=== PATIENT | female | born 1945 | race Two or more races ===

== ENCOUNTER 2022-11-15 11:09 | Emergency (ER) | payer BC, OTHER ==
[~2022-11-15] VITALS: Ht 152.4 cm; Wt 82.1 kg
[2022-11-15 12:44] LABS: BASOPHILS % (AUTO) 0.6 % (0.0-2.0); EOSINOPHILS % (AUTO) 2.6 % (0.0-6.0); HEMATOCRIT 39 % (33-45); HEMOGLOBIN 12.5 g/dL (11.5-14.8); LYMPHOCYTES # (AUTO) 1.9 K/uL (0.8-4.8); LYMPHOCYTES % (AUTO) 31.3 % (20.0-44.0); MEAN CORPUSCULAR HGB CONC 32 g/dl (31.0-36.0); MEAN CORPUSCULAR VOLUME 95 fL (82-100); MONOCYTES # (AUTO) 0.5 K/uL (0.1-1.30); MONOCYTES % (AUTO) 8.6 % (2.0-12.0); NEUTROPHILS # (AUTO) 3.5 K/uL (1.8-8.9); NEUTROPHILS % (AUTO) 56.9 % (43.0-81.0); PLATELET COUNT (AUTO) 215 K/uL (150-450); WHITE BLOOD COUNT (AUTO) 6.2 K/uL (4.3-11.0)
[2022-11-15 12:57] LABS: ALANINE AMINOTRANSFERASE 17 U/L (12-78); ALBUMIN 3.5 g/dL (3.4-5.0); ALKALINE PHOSPHATASE 168 U/L (46-116); ASPARTATE AMINOTRANSFERASE 13 U/L (15-37); BILIRUBIN,DIRECT 0.1 mg/dL (0.0-0.2); BILIRUBIN,TOTAL 0.3 mg/dL (0.2-1.0); CARBON DIOXIDE 26 mmol/L (21-32); CHLORIDE 106 mmol/L (98-107); CREATININE 1.4 mg/dL (0.6-1.3); GLUCOSE 96 mg/dL (74-106); POTASSIUM 4.2 mmol/L (3.5-5.1); SODIUM SERUM 141 mmol/L (136-145); TOTAL PROTEIN, SERUM 6.5 g/dL (6.4-8.2); UREA NITROGEN, BLOOD 28 mg/dL (7-18)
--- NOTE | 2022-11-15 13:14 | NUR ---
HERNAN, FROM SNF, C/O PAIN GENERALIZED, UPSET STOMACH AND HEAD ACHE, OVER ALL GENERALIZED WEAKNESS, DOES NOT AMBULATE,
--- NOTE | 2022-11-15 13:27 | NUR ---
URINE SPECIMEN COLLECTED SENT TO LAB- PT C/O PAIN DURING VOID STING ITCH RYAN PT STATED
[2022-11-15 14:46] LABS: BILIRUBIN,URINE NEGATIVE (NEGATIVE); COLOR,URINE YELLOW (YELLOW); LEUKOCYTE ESTERASE ,URINE TRACE (NEGATIVE); NITRITE, URINE NEGATIVE (NEGATIVE); PROTEIN,URINE 1+ mg/dl (NEGATIVE); UGLUCOSE NEGATIVE (NEGATIVE); UROBILINOGEN,URINE 0.2 EU/dL (0.2)
[2022-11-15] MEDS ORDERED: NITR100C6 PO (15:13)
--- NOTE | 2022-11-15 15:27 | NUR ---
CALLED [facility] AND SET UP BLS TRANSPORT ETA 163
--- NOTE | 2022-11-15 15:35 | NUR ---
PT IN STABLE CONDITION, ORDERS TO D/C, SNF NOTIFIED FOR CHILD SUPPORT AGENT / RIDE, ALL EDUCATION AND INFORMATION EXPLAINED TO PT AND PT HAS GOOD UNDERSTANDING DG = UTI
--- NOTE | 2022-11-15 16:21 | NUR ---
IV STOP TIME 1615 SKIN INTACT
--- NOTE | 2022-11-15 16:22 | NUR ---
PT STABLE, ORDER TO D/C PT BACK TO SNF AT THIS TIME , SNF NOTIFIED FOR TRANSFER BACK
[2022-11-15 16:23] VITALS: BP 127/66
[2022-11-15 17:32] LABS: BACTERIA,URINE RARE /HPF (None Seen); RBC,URINE 0-2 /HPF (0-2)
== END 2022-11-15 16:23 ==
LOC: ER 11:32
DX: N39.0 Urinary tract infection, site not specified (principal); M48.02 Spinal stenosis, cervical region; M79.604 Pain in right leg; I10 Essential (primary) hypertension; E11.9 Type 2 diabetes mellitus without complications; J45.909 Unspecified asthma, uncomplicated; E78.5 Hyperlipidemia, unspecified; K21.9 Gastro-esophageal reflux disease without esophagitis; Z91.040 Latex allergy status; Z88.0 Allergy status to penicillin; Z88.1 Allergy status to other antibiotic agents
CPT/HCPCS: 36415; 72125-TC; 80048-TC; 80076-TC; 81001; 84443-TC; 85025-TC

== ENCOUNTER 2023-01-27 13:54 | Emergency (ER) | payer BC, OTHER ==
[~2023-01-27] VITALS: Ht 152.4 cm; Wt 83.9 kg
[~2023-01-27 13:54] MED LIST: NITR100C6 PO
--- NOTE | 2023-01-27 14:10 | NUR ---
LESLEE JACKSON FROM [facility], C/O LEFT SIDED BODY PAIN SINCE THIS MORNING. RATES PAIN 9/10. WILL CONTINUE TO MONITOR THE PATIENT.
--- NOTE | 2023-01-27 15:10 | NUR ---
X-RAY TECH AT THE BEDSIDE
[2023-01-27] MEDS ORDERED: ACETAMINOPHEN ES 500 MG TABLET ONE (15:12)
[2023-01-27] MEDS ORDERED: ACETAMINOPHEN ES 500 MG TABLET PO ONE (15:30)
--- NOTE | 2023-01-27 15:48 | NUR ---
[phone] OCTAVIO BAIG (SON)
--- NOTE | 2023-01-27 16:18 | NUR ---
URINE COLLECTED AND SENT TO THE LAB
[2023-01-27 17:02] LABS: BILIRUBIN,URINE NEGATIVE (NEGATIVE); COLOR,URINE YELLOW (YELLOW); LEUKOCYTE ESTERASE ,URINE 1+ (NEGATIVE); NITRITE, URINE NEGATIVE (NEGATIVE); PROTEIN,URINE 1+ mg/dl (NEGATIVE); UGLUCOSE NEGATIVE (NEGATIVE); UROBILINOGEN,URINE 0.2 EU/dL (0.2)
[2023-01-27] MEDS ORDERED: CIPROFLOXACIN HCL 250 MG TABLET PO ONE (17:30)
[2023-01-27] MEDS ORDERED: CIPROFLOXACIN HCL 500 MG TABLET ONE (17:35)
[2023-01-27 17:36] LABS: BACTERIA,URINE 3+ /HPF (None Seen); RBC,URINE 0-2 /HPF (0-2)
[2023-01-27 17:37] VITALS: BP 140/77
[2023-01-27] MEDS ORDERED: CIPR-262 PO ×2 (17:55→17:57)
--- NOTE | 2023-01-27 18:02 | NUR ---
CALLED [facility] FOR TRANSPORT ETA 30-45 MINS.
--- NOTE | 2023-01-27 18:49 | NUR ---
Patient discharged in stable condition. Written and verbal after care instructions given. Patient verbalizes understanding of instruction.
--- NOTE | 2023-01-27 18:49 | NUR ---
REPORT GIVEN TO NURSE ÁLVAREZ FOR TEDDY
== END 2023-01-27 18:50 ==
LOC: ER 14:36
DX: N39.0 Urinary tract infection, site not specified (principal); M79.10 Myalgia, unspecified site; R05.9 Cough, unspecified; I10 Essential (primary) hypertension; E78.5 Hyperlipidemia, unspecified; E11.9 Type 2 diabetes mellitus without complications; J45.909 Unspecified asthma, uncomplicated; K21.9 Gastro-esophageal reflux disease without esophagitis; Z88.0 Allergy status to penicillin; Z88.8 Allergy status to other drugs, medicaments and biological substances
CPT/HCPCS: 71045-TC; 73502; 81001; 87086-TC

== ENCOUNTER 2023-03-20 17:39 | Inpatient (IN) | payer BC, OTHER ==
[~2023-03-20] VITALS: Ht 152.4 cm; Wt 81.4 kg
[~2023-03-20 17:39] MED LIST changes: +CIPR-262 PO; +MOXI3DRO EACHEYE
--- NOTE | 2023-03-20 18:08 | NUR ---
LESLEE JACKSON FROM [facility] C/O GENERALIZE DBODY PAIN, NAUSEA AND VOMITING, HEADACHE, DIARRHEA, AND FEELING, AND GENERALIZED WEAKNESS. PLACED IN BED, AAOX4, BREATHING EVEN AND UNLABORED SATURATING AT 96%RA.
--- NOTE | 2023-03-20 18:50 | NUR ---
BLOOD DRAWN AND STOOL SAMPLE FOR C DIFF SENT TO LAB
[2023-03-20] MEDS ORDERED: IV NS 0.9% 1,000 ML IV ONE (19:00)
[2023-03-20 19:18] LABS: BASOPHILS % (AUTO) 0.6 % (0.0-2.0); EOSINOPHILS % (AUTO) 2.9 % (0.0-6.0); HEMATOCRIT 39 % (33-45); HEMOGLOBIN 12.9 g/dL (11.5-14.8); LYMPHOCYTES # (AUTO) 1.5 K/uL (0.8-4.8); LYMPHOCYTES % (AUTO) 21.6 % (20.0-44.0); MEAN CORPUSCULAR HGB CONC 33 g/dl (31.0-36.0); MEAN CORPUSCULAR VOLUME 96 fL (82-100); MONOCYTES # (AUTO) 0.4 K/uL (0.1-1.30); MONOCYTES % (AUTO) 6.4 % (2.0-12.0); NEUTROPHILS # (AUTO) 4.7 K/uL (1.8-8.9); NEUTROPHILS % (AUTO) 68.5 % (43.0-81.0); PLATELET COUNT (AUTO) 250 K/uL (150-450); RED BLOOD CELL COUNT(AUTO) 4.07 MIL/uL (4.0-5.2); WHITE BLOOD COUNT (AUTO) 6.9 K/uL (4.3-11.0)
[2023-03-20 19:32] LABS: CALCIUM, SERUM 10.9 mg/dL (8.5-10.1); CARBON DIOXIDE 24 mmol/L (21-32); CHLORIDE 105 mmol/L (98-107); CREATININE 0.8 mg/dL (0.6-1.3); GLUCOSE 96 mg/dL (74-106); POTASSIUM 3.9 mmol/L (3.5-5.1); SODIUM SERUM 140 mmol/L (136-145); UREA NITROGEN, BLOOD 11 mg/dL (7-18)
[2023-03-20 19:40] LABS: ALANINE AMINOTRANSFERASE 12 U/L (12-78); ALBUMIN 3.7 g/dL (3.4-5.0); ALKALINE PHOSPHATASE 115 U/L (46-116); ASPARTATE AMINOTRANSFERASE 13 U/L (15-37); BILIRUBIN,DIRECT 0.2 mg/dL (0.0-0.2); BILIRUBIN,TOTAL 0.6 mg/dL (0.2-1.0); TOTAL PROTEIN, SERUM 7.2 g/dL (6.4-8.2)
--- NOTE | 2023-03-20 19:45 | NUR ---
MAGNESIUM 0.9; DR FLORENTINO BURNS AWARE
[2023-03-20] MEDS: Magnesium 1GM/D5W 100ML PREMIX 100 ML IV SCH ×2 (20:00→21:41)
--- NOTE | 2023-03-20 20:20 | NUR ---
URINE COLLECTED AND SENT TO LAB
--- NOTE | 2023-03-20 20:55 | NUR ---
PT TAKEN TO CT VIA [facility]
[2023-03-20 21:10] LABS: BILIRUBIN,URINE NEGATIVE (NEGATIVE); COLOR,URINE YELLOW (YELLOW); LEUKOCYTE ESTERASE ,URINE NEGATIVE (NEGATIVE); NITRITE, URINE NEGATIVE (NEGATIVE); PROTEIN,URINE 1+ mg/dl (NEGATIVE); UGLUCOSE NEGATIVE (NEGATIVE); UROBILINOGEN,URINE 0.2 EU/dL (0.2)
--- NOTE | 2023-03-20 21:11 | NUR ---
PT RETURNED TO ER BED [address]
[2023-03-20 21:15] LABS: RBC,URINE 0-2 /HPF (0-2); WBC,URINE 0-2 /HPF (0-3)
[2023-03-20 21:16] LABS: BACTERIA,URINE RARE /HPF (None Seen); MUCUS,URINE Many /LPF (None Seen)
--- NOTE | 2023-03-20 21:26 | NUR ---
EVALUATED BY SUKHWINDER SILVER
[2023-03-20] MEDS ORDERED: MAGNESIUM HYDROXIDE 30 ML UDC PO PRN (22:00)
[2023-03-20] MEDS ORDERED: ONDANSETRON HCL/PF 4 MG/2 ML VIAL IVP PRN (22:00)
[2023-03-20] MEDS ORDERED: ACETAMINOPHEN 325 MG TABLET PO PRN (22:00)
[2023-03-20] MEDS ORDERED: DEXTROSE 50%-WATER 50 ML DISP.SYRIN IV PRN ×2 (22:00→22:30)
[2023-03-20] MEDS ORDERED: LEVOFLOXACIN 500 MG /D5W 100ML 500 MG/100 ML PIGGYBACK IV SCH (22:00)
[2023-03-20] MEDS ORDERED: MAG HYDROX/AL HYDROX/SIMETH 30 ML UDC PO PRN (22:00)
[2023-03-20] MEDS ORDERED: Z GUARD REMEDY 4 OZ OINT TP PRN (22:00)
--- NOTE | 2023-03-20 22:00 | NUR ---
RN NOTES BLOOS SUGAR CHECKED . RESULT NOTED 91. NO INSULIN COVERAGE.
[2023-03-20] MEDS ORDERED: CIPROFLOXACIN IV RTU 400 MG in PREMIX 1 EA IV STA (22:12)
[2023-03-20] MEDS ORDERED: INSULIN REGULAR, HUMAN 100 UNIT/ML 3 ML VIAL SQ PRN (22:30)
--- NOTE | 2023-03-20 22:31 | NUR ---
REPORT GIVEN TO DANIELE RN ROOM 328-2 FOR TEDDY
[2023-03-20] MEDS ORDERED: METRONIDAZOLE 500MG/ NS 100ML 100 ML IV ONE (22:37)
--- NOTE | 2023-03-20 22:45 | NUR ---
MS STEAM METER READER NOTES RECEIVED PATIENT FROM ER AT 2245 . PATIENT IS A/O TIMES 3. NO PAIN NOTED. NO SOB NOTED. NO DISTRESS NOTED. ON ROOM AIR AND TOLERATING WELL. ABLE TO MAKE NEEDS KNOWN IN MOHAWK LANGUAGE. ALL NEEDA ATTENDED. SKIN CHECK DONE. PHOTO TAKEN AND KEPT IN CHART. LEFT UNDER BREAST OPEN SKIN, RIGHT UNDER BREAST REDNESS. UNDER ABDOMINAL OPEN SKIN, RIGHT HIP SCRATCH. LOWER BACK REDNESS AND SACRAL OPEN SKIN. ALL THE BELONGINGS ACCOUNTED AND SIGNED FOR. IV ACCESS ON THE LAC # 20 INTACT AND RUNNING NS AT 50 ML/HR. VITAL SIGNS IN NORMAL RANGES. INSTRUCT THE PATIENT HOW TO USE THE CALL LIGHT VERBALIZED UNDERSTANDING. ALL SAFETY MEASURES IN PLACE. BED LOCKED IN THE LOWEST POSITION. CALL LIGHT AND TABLE IN EASY REACH. SIDE RAILS UP TIMES 2. BED ALARM ON. WILL CONTINUE TO MONITOR CLOSELY.
[2023-03-21] MEDS: BLOOD SUGAR DIAGNOSTIC 1 EACH STRIP IN SCH ×5 (00:27→21:49)
[2023-03-21] MEDS ORDERED: METRONIDAZOLE 500MG/ NS 100ML 100 ML IV ONE (01:00)
[2023-03-21] MEDS: IV NS 0.9% 1,000 ML IV PRN (01:17)
[2023-03-21] MEDS ORDERED: LEVOFLOXACIN 500 MG /D5W 100ML 100 ML IV ONE (02:00)
[2023-03-21] MEDS ORDERED: METRONIDAZOLE 500MG/ NS 100ML 500 MG in PREMIX 1 EA IV SCH (05:00)
--- NOTE | 2023-03-21 05:08 | NUR ---
RN NOTES PRN IV ZOFRAN GIVEN FOR 1 EPISODE OF VOMITING AT 0459. WILL ASSESS IN 30 MIN.
[2023-03-21] MEDS: METRONIDAZOLE 500MG/ NS 100ML 500 MG in PREMIX 1 EA IV SCH ×3 (06:35→21:07)
--- NOTE | 2023-03-21 06:57 | NUR ---
MS RN CLOSING NOTES: PATIENT AWAKE ON BED, ON MODERATE HIGH BACKREST, A/O X4. NO PAIN OR DISCOMFORT NOTED AT THIS TIME. NO SOB OR DISTRESS NOTED. ON ROOM AIR AND TOLERATING WELL. ABLE TO MAKE NEEDS KNOWN. ALL NEEDS ATTENDED. IV ACCESS ON THE LAC # 20 INTACT AND RUNNING NS AT 50 ML/HR, INFUSING WELL. SCHEDULED MEDICATIONS ADMINISTERED. SAFETY MEASURES IN PLACE. BED LOCKED IN THE LOWEST POSITION. CALL LIGHT AND TABLE IN EASY REACH. SIDE RAILS UP TIMES 2. BED ALARM ON. WILL ENDORSE TO AM NURSE.
[2023-03-21 07:23] LABS: BASOPHILS % (AUTO) 0.5 % (0.0-2.0); EOSINOPHILS % (AUTO) 2.5 % (0.0-6.0); HEMATOCRIT 35 % (33-45); HEMOGLOBIN 11.4 g/dL (11.5-14.8); LYMPHOCYTES # (AUTO) 1.2 K/uL (0.8-4.8); LYMPHOCYTES % (AUTO) 16.2 % (20.0-44.0); MEAN CORPUSCULAR HGB CONC 33 g/dl (31.0-36.0); MEAN CORPUSCULAR VOLUME 97 fL (82-100); MONOCYTES # (AUTO) 0.5 K/uL (0.1-1.30); MONOCYTES % (AUTO) 7.2 % (2.0-12.0); NEUTROPHILS # (AUTO) 5.2 K/uL (1.8-8.9); NEUTROPHILS % (AUTO) 73.6 % (43.0-81.0); PLATELET COUNT (AUTO) 218 K/uL (150-450); RED BLOOD CELL COUNT(AUTO) 3.57 MIL/uL (4.0-5.2); WHITE BLOOD COUNT (AUTO) 7.1 K/uL (4.3-11.0)
[2023-03-21 07:30] VITALS: BP 154/55; TEMP 98.3; O2SAT 97
[2023-03-21] MEDS ORDERED: BLOOD SUGAR DIAGNOSTIC 1 EACH STRIP IN SCH (07:30)
--- NOTE | 2023-03-21 07:32 | NUR ---
RN OPENING NOTE RECEIVED PATIENT AWAKE ON BED, A/O X4, ABLE TO MAKE NEEDS KNOWN. ON ROOM AIR TOLERATING WELL. WITH NO S/S OF SOB OR DISTRESS NOTED. WITH IV ACCESS ON LEFT AC #20G WITH NS AT 50 ML/HR. PATIENT HAS NO COMPLAINS OF PAIN OR DISCOMFORT AT THIS TIME. SAFETY PRECAUTION IN PLACE: BED IN LOWEST LOCKED POSITION, SIDE RAILS UP X2, CALL LIGHT WITHIN REACH. WILL CONTINUE TO MONITOR ACCORDINGLY.
[2023-03-21 07:49] LABS: CALCIUM, SERUM 9.9 mg/dL (8.5-10.1); CREATININE 0.7 mg/dL (0.6-1.3); MAGNESIUM 1.3 mg/dL (1.8-2.4); PHOSPHORUS 3.4 mg/dL (2.5-4.9); POTASSIUM 3.6 mmol/L (3.5-5.1)
[2023-03-21] MEDS: PANTOPRAZOLE 40 MG TABLET.DR PO SCH (07:53)
[2023-03-21 07:54] LABS: THYROID STIMULATING HORMONE 1.995 uIU/mL (0.358-3.74)
[2023-03-21] MEDS ORDERED: ACET-868 PO (09:36)
[2023-03-21] MEDS ORDERED: ATOR10TA PO (09:36)
[2023-03-21] MEDS ORDERED: HYDR-4303 PO (09:36)
[2023-03-21] MEDS ORDERED: ALBU8.5H8 IH (09:36)
[2023-03-21] MEDS ORDERED: ONDA4TAB5 PO (09:36)
[2023-03-21] MEDS ORDERED: METF-440 PO (09:36)
[2023-03-21] MEDS ORDERED: MONT10TA22 PO (09:36)
[2023-03-21] MEDS ORDERED: LOPE2CAP PO (09:36)
[2023-03-21] MEDS ORDERED: DONE10TA44 PO (09:36)
[2023-03-21] MEDS ORDERED: TRAM50TA2 PO (09:36)
[2023-03-21] MEDS ORDERED: SENN-261 PO (09:36)
[2023-03-21] MEDS ORDERED: METH750T3 PO (09:36)
[2023-03-21] MEDS ORDERED: ESCI5TAB PO (09:36)
[2023-03-21] MEDS ORDERED: DICLOFENAC GEL TP (09:36)
[2023-03-21] MEDS ORDERED: PANT40TA2 PO (09:36)
[2023-03-21] MEDS ORDERED: GABA300C PO (09:36)
[2023-03-21] MEDS ORDERED: NYST500P2 TP (09:36)
[2023-03-21] MEDS ORDERED: LATA2.5D15 EACHEYE (09:36)
[2023-03-21] MEDS ORDERED: AMLO10TA4 PO (09:36)
[2023-03-21] MEDS ORDERED: ALLO300T2 PO (09:36)
[2023-03-21] MEDS ORDERED: IXEK80SY3 SQ (09:36)
[2023-03-21] MEDS: Magnesium 1GM/D5W 100ML PREMIX 100 ML IV SCH ×4 (10:57→14:23)
[2023-03-21] MEDS: INSULIN REGULAR, HUMAN 100 UNIT/ML 3 ML VIAL SQ PRN ×2 (11:49→17:22)
[2023-03-21] MEDS: DICYCLOMINE HCL 10 MG CAPSULE PO SCH ×2 (12:05→18:03)
[2023-03-21 16:00] VITALS: BP 121/70; TEMP 98.7; O2SAT 98
--- NOTE | 2023-03-21 18:15 | NUR ---
RN CLOSING NOTE PATIENT AWAKE ON BED, A/O X4, ABLE TO MAKE NEEDS KNOWN. ON ROOM AIR TOLERATING WELL. WITH NO S/S OF SOB OR DISTRESS NOTED. WITH IV ACCESS ON LEFT AC #20G WITH NS AT 50 ML/HR. PATIENT HAS NO COMPLAINS OF PAIN OR DISCOMFORT AT THIS TIME. DUE MEDS GIVEN, ALL NEEDS ATTENDED, KEPT PT COMFORTABLE IN BED. SAFETY PRECAUTION IN PLACE: BED IN LOWEST LOCKED POSITION, SIDE RAILS UP X2, CALL LIGHT WITHIN REACH. WILL ENDORSE TO ENVIRONMENTAL ENGINEERING TECHNICIAN.
--- NOTE | 2023-03-21 19:15 | NUR ---
MS RN OPENING NOTES: PATIENT AWAKE ON BED, ON MODERATE HIGH BACKREST, A/O X4. NO PAIN OR DISCOMFORT NOTED AT THIS TIME. NO COMPLAINTS OF NAUSEA AND VOMITING. ON ROOM AIR, TOLERATING WELL, NO SOB OR DISTRESS NOTED. IV ACCESS ON THE LAC # 20G INTACT AND RUNNING NS AT 50 ML/HR, INFUSING WELL. FALL AND SAFETY MEASURES IN PLACE. BED ALARM ON, LOCKED IN THE LOWEST POSITION. CALL LIGHT AND TABLE WITHIN EASY REACH. SIDE RAILS UP X2. WILL CONTINUE TO MONITOR.
[2023-03-21 20:00] VITALS: BP 121/65; TEMP 98.5; O2SAT 95
[2023-03-21] MEDS: DONEPEZIL 5 MG TABLET PO SCH (21:08)
[2023-03-21] MEDS: MONTELUKAST SODIUM (10MG) 10 MG TABLET PO SCH (21:08)
[2023-03-21] MEDS: ATORVASTATIN 10 MG TABLET PO SCH (21:08)
[2023-03-21] MEDS: LATANOPROST EYE DROP 0.005% 2.5 ML BOTTLE EACHEYE SCH (21:08)
[2023-03-21] MEDS: GABAPENTIN 300 MG CAPSULE PO SCH (21:09)
--- NOTE | 2023-03-21 21:23 | NUR ---
RN NOTES BLOOD SUGAR CHECK RESULT IS 97 FOR TIME 2200. NO INSULIN COVERAGE.
[2023-03-21] MEDS: TEMAZEPAM 15 MG CAPSULE PO PRN (22:16)
--- NOTE | 2023-03-21 22:18 | NUR ---
RN NOTES PRN TEMAZEPAM 15 MG PO GIVEN FOR INSOMNIA PER PATIENT REQUEST AT 0992. WILL ASSESS INSOMNIA IN 1 HOUR.
[2023-03-21] MEDS: CLOTRIMAZOLE 1% 15 GM TUBE TP SCH (23:00)
--- NOTE | 2023-03-21 23:52 | NUR ---
RN NOTES LOTRIMIN CREAM NOT AVAILABLE AT THIS TIME. THIS IS A NEW ORDER. DID NOT ADMINISTERED THE MEDICATION. WILL ENDORSE MORNING SHIFT TO FOLLOW UP.
[2023-03-22] MEDS: DICYCLOMINE HCL 10 MG CAPSULE PO SCH ×4 (00:41→16:29)
[2023-03-22] MEDS: LEVOFLOXACIN 250 MG /D5W 50 ML 50 ML IV SCH (01:18)
[2023-03-22] MEDS: IV NS 0.9% 1,000 ML IV PRN (01:19)
[2023-03-22 04:00] VITALS: BP 137/77; TEMP 101.4; O2SAT 96
[2023-03-22] MEDS: METRONIDAZOLE 500MG/ NS 100ML 500 MG in PREMIX 1 EA IV SCH ×3 (04:03→20:57)
[2023-03-22] MEDS: BLOOD SUGAR DIAGNOSTIC 1 EACH STRIP IN SCH ×4 (06:30→21:27)
--- NOTE | 2023-03-22 06:30 | NUR ---
MS RN NOTES: BLOOD SUGAR CHECK RESULT IS 87. NO INSULIN COVERAGE.
[2023-03-22 06:36] LABS: BASOPHILS % (AUTO) 0.3 % (0.0-2.0); EOSINOPHILS % (AUTO) 2.1 % (0.0-6.0); HEMATOCRIT 32 % (33-45); HEMOGLOBIN 10.7 g/dL (11.5-14.8); LYMPHOCYTES # (AUTO) 0.9 K/uL (0.8-4.8); LYMPHOCYTES % (AUTO) 12.8 % (20.0-44.0); MEAN CORPUSCULAR HGB CONC 33 g/dl (31.0-36.0); MEAN CORPUSCULAR VOLUME 96 fL (82-100); MONOCYTES # (AUTO) 0.4 K/uL (0.1-1.30); MONOCYTES % (AUTO) 6.1 % (2.0-12.0); NEUTROPHILS # (AUTO) 5.5 K/uL (1.8-8.9); NEUTROPHILS % (AUTO) 78.7 % (43.0-81.0); PLATELET COUNT (AUTO) 215 K/uL (150-450); RED BLOOD CELL COUNT(AUTO) 3.36 MIL/uL (4.0-5.2)
--- NOTE | 2023-03-22 06:46 | NUR ---
MS RN CLOSING NOTES: PATIENT ASLEEP ON BED, ON MODERATE HIGH BACKREST, A/O X4. NO PAIN OR DISCOMFORT NOTED AT THIS TIME. NO COMPLAINTS OF NAUSEA AND VOMITING. ON ROOM AIR, TOLERATING WELL, NO SOB OR DISTRESS NOTED. IV ACCESS ON THE LAC # 20G INTACT AND RUNNING NS AT 50 ML/HR, INFUSING WELL. SCHEDULED MEDICATIONS ADMINISTERED. SAFETY MEASURES IN PLACE. BED LOCKED IN THE LOWEST POSITION. CALL LIGHT AND TABLE WITHIN EASY REACH. SIDE RAILS UP X2. BED ALARM ON. WILL ENDORSE TO AM NURSE.
[2023-03-22 07:05] LABS: CALCIUM, SERUM 9.9 mg/dL (8.5-10.1); CREATININE 0.8 mg/dL (0.6-1.3); MAGNESIUM 1.5 mg/dL (1.8-2.4); PHOSPHORUS 3.1 mg/dL (2.5-4.9); POTASSIUM 3.6 mmol/L (3.5-5.1)
[2023-03-22] MEDS: HYDROCODONE/APAP 5/325MG TABLET PO PRN ×2 (07:51→16:30)
[2023-03-22] MEDS: PANTOPRAZOLE 40 MG TABLET.DR PO SCH (07:51)
[2023-03-22 08:00] VITALS: BP 100/64; TEMP 98.5; TEMP 98.8; O2SAT 90
--- NOTE | 2023-03-22 08:00 | NUR ---
MS RN OPENING NOTE (DAY SHIFT) RECEIVED PATIENT AWAKE ON BED, A/O X 4, ABLE TO MAKE NEEDS KNOWN. ON ROOM AIR TOLERATING WELL. WITH NO S/S OF SOB OR DISTRESS NOTED. WITH IV ACCESS ON LEFT AC #20G WITH NS AT 50 ML/HR. PATIENT HAS NO COMPLAINS OF PAIN NOR DISCOMFORT AT THIS TIME. SAFETY PRECAUTION IN PLACE: BED IN LOWEST LOCKED POSITION, SIDE RAILS UP X2, CALL LIGHT WITHIN REACH. WILL CONTINUE TO MONITOR AND CARE FOR PATIENT PER MD's POC..
[2023-03-22] MEDS: ESCITALOPRAM OXALATE (10 MG) 10 MG TABLET PO SCH (09:30)
[2023-03-22] MEDS: CLOTRIMAZOLE 1% 15 GM TUBE TP SCH ×2 (09:49→16:29)
[2023-03-22] MEDS: ALLOPURINOL 100 MG TABLET PO SCH (09:49)
[2023-03-22] MEDS: AMLODIPINE BESYLATE 10 MG TABLET PO SCH (09:49)
[2023-03-22] MEDS: GABAPENTIN 300 MG CAPSULE PO SCH ×2 (09:50→20:57)
[2023-03-22] MEDS: Magnesium 1GM/D5W 100ML PREMIX 100 ML IV SCH ×3 (11:25→16:38)
[2023-03-22] MEDS: ENOXAPARIN SODIUM 40 MG/0.4 ML DISP.SYRIN SQ SCH (16:52)
[2023-03-22] MEDS: INSULIN REGULAR, HUMAN 100 UNIT/ML 3 ML VIAL SQ PRN (16:53)
--- NOTE | 2023-03-22 17:32 | NUR ---
Nurse flexed to leave shift early. Hand-off report given to nurse Bautista to continue care of patient.
--- NOTE | 2023-03-22 18:37 | NUR ---
MS RN NOTES: RECEIVED PATIENT FROM CO-NURSE JASON ON MODERATE HIGH BACKREST, A/O X4. NO PAIN OR DISCOMFORT NOTED AT THIS TIME. NO COMPLAINTS OF NAUSEA AND VOMITING. ON ROOM AIR, TOLERATING WELL, NO SOB OR DISTRESS NOTED. IV ACCESS ON THE LAC # 20G INTACT AND RUNNING NS AT 50 ML/HR, INFUSING WELL. SAFETY MEASURES IN PLACE. BED LOCKED IN THE LOWEST POSITION. CALL LIGHT AND TABLE WITHIN EASY REACH. SIDE RAILS UP X2. BED ALARM ON. WILL ENDORSE TO NIGHT NURSE.
[2023-03-22 19:11] VITALS: TEMP 98.5; O2SAT 80
--- NOTE | 2023-03-22 19:30 | NUR ---
RN OPENING NOTES RECEIVED PATIENT IN BED; A/O X 4 ABLE TO VERBALIZED NEEDS AND CONCERNS. ON ROOM AIR SATURATING WELL NO SOB/ NOTED AT THIS TIME. PATIENT IS INCONTINENT USES DIAPER; ON FULL LIQUID DIET ON ASPIRATION PRECAUTION. WITH IV ACCESS AT LAC #20G WITH NS1L AT 50ML/HR INFUSING WELL NO SWELLING OR INFILTRATION NOTED AT THIS TIME. NO PAIN OR DISCOMFORT NOTED AT THIS TIME. KEPT PATIENT WARM AND COMFORTABLE; KEPT BED ON LOWER LOCKED POSITION; KEPT SIDE RAILS UP X 2 ALL THE TIME; KEPT CALL LIGHT WITHIN AT REACH. WILL CONTINUE TO MONITOR.
[2023-03-22 20:08] VITALS: BP 93/46; TEMP 98.5; O2SAT 95
[2023-03-22 20:13] VITALS: BP 108/54; TEMP 98.5; O2SAT 96
[2023-03-22] MEDS: DONEPEZIL 5 MG TABLET PO SCH (21:02)
[2023-03-22] MEDS: ATORVASTATIN 10 MG TABLET PO SCH (21:02)
[2023-03-22] MEDS: LATANOPROST EYE DROP 0.005% 2.5 ML BOTTLE EACHEYE SCH (21:03)
[2023-03-22] MEDS: MONTELUKAST SODIUM (10MG) 10 MG TABLET PO SCH (21:03)
[2023-03-23] MEDS: DICYCLOMINE HCL 10 MG CAPSULE PO SCH ×5 (00:08→23:12)
[2023-03-23] MEDS: LEVOFLOXACIN 250 MG /D5W 50 ML 50 ML IV SCH (02:15)
[2023-03-23] MEDS: IV NS 0.9% 1,000 ML IV PRN (04:07)
[2023-03-23] MEDS: METRONIDAZOLE 500MG/ NS 100ML 500 MG in PREMIX 1 EA IV SCH ×3 (04:22→21:06)
[2023-03-23] MEDS: HYDROCODONE/APAP 5/325MG TABLET PO PRN ×2 (06:12→21:22)
[2023-03-23] MEDS: BLOOD SUGAR DIAGNOSTIC 1 EACH STRIP IN SCH ×4 (06:28→21:17)
--- NOTE | 2023-03-23 06:43 | NUR ---
RN CLOSING NOTES PATIENT IS IN BED; A/O X 4 ABLE TO VERBALIZED NEEDS AND CONCERNS. ON ROOM AIR SATURATING WELL NO SOB/ NOTED AT THIS TIME. PATIENT IS INCONTINENT USES DIAPER; ON FULL LIQUID DIET ON ASPIRATION PRECAUTION. WITH IV ACCESS AT LAC #20G WITH NS1L AT 50ML/HR INFUSING WELL NO SWELLING OR INFILTRATION NOTED AT THIS TIME. ALL DUE MEDICATIONS GIVEN; ALL NEEDS ATTENDED; TURNED PATIENT EVERY 2 HOURS; WOUND CARE UNDER THE BREAST FOLDS AND ABDOMINAL FOLDS DONE AND KEPT CLEAN AND DRY, NO PAIN OR DISCOMFORT NOTED AT THIS TIME. KEPT PATIENT WARM AND COMFORTABLE; KEPT BED ON LOWER LOCKED POSITION; KEPT SIDE RAILS UP X 2 ALL THE TIME; KEPT CALL LIGHT WITHIN AT REACH. WII ENDORSED TO AM SHIFT FOR TEDDY.
[2023-03-23 06:57] LABS: CALCIUM, SERUM 10.1 mg/dL (8.5-10.1); CARBON DIOXIDE 24 mmol/L (21-32); CHLORIDE 107 mmol/L (98-107); CREATININE 0.9 mg/dL (0.6-1.3); GLUCOSE 101 mg/dL (74-106); POTASSIUM 3.4 mmol/L (3.5-5.1); SODIUM SERUM 140 mmol/L (136-145); UREA NITROGEN, BLOOD 10 mg/dL (7-18)
--- NOTE | 2023-03-23 07:30 | NUR ---
MS RN OPENING NOTES RECEIVED PATIENT IS IN BED; A/O X 4 ABLE TO VERBALIZED NEEDS AND CONCERNS. ON ROOM AIR SATURATING WELL NO SOB/ NOTED AT THIS TIME. PATIENT IS INCONTINENT USES DIAPER; ON FULL LIQUID DIET ON ASPIRATION PRECAUTION. WITH IV ACCESS AT LAC #20G WITH NS1L AT 50ML/HR INFUSING WELL NO SWELLING OR INFILTRATION NOTED AT THIS TIME. WILL ADMINISTER ALL SCHEDULED MEDS ORDERED; ALL NEEDS ATTENDED; TURNED PATIENT EVERY 2 HOURS; KEPT CLEAN AND DRY, NO PAIN OR DISCOMFORT NOTED AT THIS TIME. KEPT PATIENT WARM AND COMFORTABLE; KEPT BED ON LOWER LOCKED POSITION; KEPT SIDE RAILS UP X 2 ALL THE TIME; KEPT CALL LIGHT WITHIN AT REACH. WILL CONTINUE TO MONITOR.
[2023-03-23 08:00] VITALS: BP 110/53; TEMP 98.2; O2SAT 96
[2023-03-23] MEDS: ESCITALOPRAM OXALATE (10 MG) 10 MG TABLET PO SCH (08:47)
[2023-03-23] MEDS: GABAPENTIN 300 MG CAPSULE PO SCH ×2 (08:47→21:06)
[2023-03-23] MEDS: ALLOPURINOL 100 MG TABLET PO SCH (08:47)
[2023-03-23] MEDS: PANTOPRAZOLE 40 MG TABLET.DR PO SCH (08:47)
[2023-03-23] MEDS: AMLODIPINE BESYLATE 10 MG TABLET PO SCH (08:47)
[2023-03-23] MEDS: CLOTRIMAZOLE 1% 15 GM TUBE TP SCH ×2 (08:53→18:09)
[2023-03-23] MEDS ORDERED: POTASSIUM CHLORIDE 20 MEQ POWDER PACKET PO SCH (09:00)
[2023-03-23 10:17] VITALS: BP 110/53; TEMP 98.2; O2SAT 96
[2023-03-23] MEDS: MORPHINE SULFATE INJ 2 MG/ML DISP.SYRIN IV PRN (12:59)
[2023-03-23 16:00] VITALS: BP 103/37; TEMP 98; O2SAT 96
[2023-03-23] MEDS: ENOXAPARIN SODIUM 40 MG/0.4 ML DISP.SYRIN SQ SCH (17:57)
--- NOTE | 2023-03-23 18:38 | NUR ---
MS RN CLOSING NOTES PATIENT RESTING IN BED; A/O X 4 ABLE TO VERBALIZED NEEDS AND CONCERNS. ON ROOM AIR SATURATING WELL NO SOB/ NOTED AT THIS TIME. PATIENT IS INCONTINENT USES DIAPER; ON FULL LIQUID DIET ON ASPIRATION PRECAUTION. WITH IV ACCESS AT LAC #20G WITH NS1L AT 50ML/HR INFUSING WELL NO SWELLING OR INFILTRATION NOTED AT THIS TIME. ALL SCHEDULED MEDS GIVEN ORDERED; ALL NEEDS ATTENDED; TURNED PATIENT EVERY 2 HOURS; KEPT CLEAN AND DRY, NO PAIN OR DISCOMFORT NOTED AT THIS TIME. WOUND CARE DONE. KEPT PATIENT WARM AND COMFORTABLE; KEPT BED ON LOWER LOCKED POSITION; KEPT SIDE RAILS UP X 2 ALL THE TIME; KEPT CALL LIGHT WITHIN AT REACH. WILL ENDORSE TO NEXT SHIFT.
--- NOTE | 2023-03-23 19:30 | NUR ---
MS RN OPENING NOTES RECEIVED PT RESTING IN BED, EASILY AROUSED. A/O X4, ABLE TO VERBALIZE NEEDS. ON ROOM AIR SATURATING WELL NO SOB/ NOTED AT THIS TIME. ON FULL LIQUID DIET AND ASPIRATION PRECAUTIONS. WITH IV ACCESS AT LAC #20G WITH NS AT 50ML/HR INFUSING WELL NO SWELLING OR INFILTRATION NOTED AT THIS TIME. NO PAIN OR DISCOMFORT NOTED AT THIS TIME. SAFETY MEASURES IN PLACE: BED LOCKED AND IN LOW POSITION, SIDE RAILS UP X2, CALL LIGHT AND TRAY TABLE WITHIN REACH. WILL CONTINUE TO MONITOR AND ASSIST.
[2023-03-23 20:00] VITALS: BP 112/62; TEMP 98.4; O2SAT 100
[2023-03-23] MEDS: LATANOPROST EYE DROP 0.005% 2.5 ML BOTTLE EACHEYE SCH (21:05)
[2023-03-23] MEDS: ATORVASTATIN 10 MG TABLET PO SCH (21:06)
[2023-03-23] MEDS: MONTELUKAST SODIUM (10MG) 10 MG TABLET PO SCH (21:06)
[2023-03-23] MEDS: DONEPEZIL 5 MG TABLET PO SCH (21:06)
[2023-03-23] MEDS: INSULIN REGULAR, HUMAN 100 UNIT/ML 3 ML VIAL SQ PRN (21:17)
[2023-03-24] MEDS: LEVOFLOXACIN 250 MG /D5W 50 ML 50 ML IV SCH (01:20)
[2023-03-24 01:37] VITALS: BP 120/58; O2SAT 96
[2023-03-24] MEDS: TEMAZEPAM 15 MG CAPSULE PO PRN (01:39)
[2023-03-24] MEDS: DICYCLOMINE HCL 10 MG CAPSULE PO SCH ×4 (05:16→23:53)
[2023-03-24] MEDS: METRONIDAZOLE 500MG/ NS 100ML 500 MG in PREMIX 1 EA IV SCH (05:16)
[2023-03-24 06:09] LABS: CALCIUM, SERUM 9.8 mg/dL (8.5-10.1); CREATININE 0.7 mg/dL (0.6-1.3); POTASSIUM 3.7 mmol/L (3.5-5.1)
[2023-03-24] MEDS: INSULIN REGULAR, HUMAN 100 UNIT/ML 3 ML VIAL SQ PRN ×3 (06:49→21:30)
[2023-03-24] MEDS: BLOOD SUGAR DIAGNOSTIC 1 EACH STRIP IN SCH ×4 (06:49→21:30)
--- NOTE | 2023-03-24 07:03 | NUR ---
MS RN CLOSING NOTES PT RESTING IN BED, EASILY AROUSED. A/O X4, ABLE TO VERBALIZE NEEDS. STABLE ON ROOM AIR SATURATING WELL NO SOB/ NOTED AT THIS TIME. MAINTAINED ON FULL LIQUID DIET AND ASPIRATION PRECAUTIONS. WITH IV ACCESS AT LAC #20G WITH NS AT 50ML/HR INFUSING WELL NO SWELLING OR INFILTRATION NOTED AT THIS TIME. NO PAIN OR DISCOMFORT NOTED AT THIS TIME. PUREWICK INTACT, TOTAL 500 ML. TURNED AND REPOSITIONED PER PROTOCOL. ALL CARE PROVIDED AND MEDS TOLERATED WELL. SAFETY MEASURES MAINTAINED: BED LOCKED AND IN LOW POSITION, SIDE RAILS UP X2, CALL LIGHT AND TRAY TABLE WITHIN REACH. WILL ENDORSE TEDDY TO DAY SHIFT NURSE.
--- NOTE | 2023-03-24 07:19 | NUR ---
MS RN OPENING NOTE RECEIVED PATIENT IN BED ASLEEP BUT EASILY WOKEN UP. PATIENT IS A/O X4, ABLE TO VERBALIZE NEEDS. ON ROOM AIR SATURATING WELL NO SOB/ NOTED AT THIS TIME. WITH IV ACCESS AT LAC #20G WITH NS AT 50ML/HR INFUSING WELL NO SWELLING OR INFILTRATION NOTED AT THIS TIME. NO PAIN OR DISCOMFORT NOTED AT THIS TIME. SAFETY MEASURES IN PLACE: BED LOCKED AND IN LOW POSITION, SIDE RAILS UP X2, CALL LIGHT AND TRAY TABLE WITHIN REACH. WILL CONTINUE WITH PLAN OF CARE.
[2023-03-24] MEDS: PANTOPRAZOLE 40 MG TABLET.DR PO SCH (07:58)
[2023-03-24 08:00] VITALS: BP 145/63; TEMP 98.5; O2SAT 93
[2023-03-24] MEDS: CLOTRIMAZOLE 1% 15 GM TUBE TP SCH ×2 (09:00→17:37)
--- NOTE | 2023-03-24 09:15 | NUR ---
MS RN NOTE SEEN BY DR. REAVES.
[2023-03-24] MEDS: ALLOPURINOL 100 MG TABLET PO SCH (10:27)
[2023-03-24] MEDS: AMLODIPINE BESYLATE 10 MG TABLET PO SCH (10:28)
[2023-03-24] MEDS: GABAPENTIN 300 MG CAPSULE PO SCH ×2 (10:28→21:18)
[2023-03-24] MEDS: ESCITALOPRAM OXALATE (10 MG) 10 MG TABLET PO SCH (10:28)
[2023-03-24] MEDS: Magnesium 1GM/D5W 100ML PREMIX 100 ML IV SCH ×4 (10:32→13:50)
[2023-03-24] MEDS: METRONIDAZOLE 500 MG TABLET PO SCH ×2 (12:40→21:18)
[2023-03-24] MEDS: MORPHINE SULFATE INJ 2 MG/ML DISP.SYRIN IV PRN (12:41)
[2023-03-24 16:00] VITALS: BP 117/58; TEMP 98.4; O2SAT 97
[2023-03-24] MEDS: ENOXAPARIN SODIUM 40 MG/0.4 ML DISP.SYRIN SQ SCH (17:38)
[2023-03-24] MEDS: IV NS 0.9% 1,000 ML IV PRN (18:17)
--- NOTE | 2023-03-24 19:10 | NUR ---
MS RN CLOSING NOTE ENDORSED PATIENT TO NEXT SHIFT FOR CONTINUITY OF CARE.
--- NOTE | 2023-03-24 19:30 | NUR ---
MS RN OPENING NOTES RECEIVED PT RESTING IN BED, EASILY AROUSED. A/O X4, ABLE TO VERBALIZE NEEDS. ON ROOM AIR SATURATING WELL NO SOB/ NOTED AT THIS TIME. ADVANCED TO SOFT DIET / CCHO STARTING TOMORROW. WITH IV ACCESS AT LAC #20G WITH NS AT 50ML/HR INFUSING WELL NO SWELLING OR INFILTRATION NOTED AT THIS TIME. NO PAIN OR DISCOMFORT NOTED AT THIS TIME. SAFETY MEASURES IN PLACE: BED LOCKED AND IN LOW POSITION, SIDE RAILS UP X2, CALL LIGHT AND TRAY TABLE WITHIN REACH. WILL CONTINUE TO MONITOR AND ASSIST.
[2023-03-24 20:00] VITALS: BP 135/65; TEMP 98.5; O2SAT 96
[2023-03-24] MEDS ORDERED: LEVOFLOXACIN (250MG) 250 MG TABLET PO SCH (21:00)
[2023-03-24] MEDS: MONTELUKAST SODIUM (10MG) 10 MG TABLET PO SCH (21:19)
[2023-03-24] MEDS: DONEPEZIL 5 MG TABLET PO SCH (21:19)
[2023-03-24] MEDS: ATORVASTATIN 10 MG TABLET PO SCH (21:19)
[2023-03-24] MEDS: LATANOPROST EYE DROP 0.005% 2.5 ML BOTTLE EACHEYE SCH (21:19)
[2023-03-25 00:18] VITALS: BP 129/63; O2SAT 96
[2023-03-25] MEDS: MORPHINE SULFATE INJ 2 MG/ML DISP.SYRIN IV PRN ×3 (00:23→17:43)
[2023-03-25] MEDS: DICYCLOMINE HCL 10 MG CAPSULE PO SCH ×2 (05:10→11:18)
[2023-03-25] MEDS: METRONIDAZOLE 500 MG TABLET PO SCH ×2 (05:10→13:05)
[2023-03-25] MEDS: HYDROCODONE/APAP 5/325MG TABLET PO PRN (05:44)
--- NOTE | 2023-03-25 06:09 | NUR ---
MS RN CLOSING NOTES PT RESTING IN BED, EASILY AROUSED. A/O X4, ABLE TO VERBALIZE NEEDS. STABLE ON ROOM AIR SATURATING WELL NO SOB/ NOTED AT THIS TIME. IV ACCESS AT LAC #20G WITH NS AT 50ML/HR INFUSING WELL NO SWELLING OR INFILTRATION NOTED AT THIS TIME. NO PAIN OR DISCOMFORT NOTED AT THIS TIME. PUREWICK INTACT, DRAINING URINE WELL. TURNED AND REPOSITIONED PER PROTOCOL. ALL CARE PROVIDED AND MEDS TOLERATED WELL. SAFETY MEASURES MAINTAINED: BED LOCKED AND IN LOW POSITION, SIDE RAILS UP X2, CALL LIGHT AND TRAY TABLE WITHIN REACH. WILL ENDORSE TEDDY TO DAY SHIFT NURSE.
[2023-03-25] MEDS: BLOOD SUGAR DIAGNOSTIC 1 EACH STRIP IN SCH ×3 (06:55→16:56)
[2023-03-25] MEDS: INSULIN REGULAR, HUMAN 100 UNIT/ML 3 ML VIAL SQ PRN ×3 (06:56→17:12)
--- NOTE | 2023-03-25 07:15 | NUR ---
RN OPENING NOTES RECEIVED PT IN BED RESTING IN BED, EASILY AROUSED AND AWAKE. A/O X4, ABLE TO VERBALIZE NEEDS. STABLE ON ROOM AIR SATURATING WELL NO SOB/ NOTED AT THIS TIME. IV ACCESS AT LAC #20G WITH NS AT 50ML/HR INFUSING WELL NO SWELLING OR INFILTRATION NOTED AT THIS TIME. NO PAIN OR DISCOMFORT NOTED AT THIS TIME. PUREWICK INTACT @200ML. DRAINING URINE WELL. TURNED AND REPOSITIONED PER PROTOCOL. SAFETY MEASURES MAINTAINED: BED LOCKED AND IN LOW POSITION, SIDE RAILS UP X2, CALL LIGHT AND TRAY TABLE WITHIN REACH. WILL CONTINUE TO MONITOR.
[2023-03-25] MEDS: PANTOPRAZOLE 40 MG TABLET.DR PO SCH (07:33)
[2023-03-25] MEDS: ESCITALOPRAM OXALATE (10 MG) 10 MG TABLET PO SCH (08:34)
[2023-03-25] MEDS: GABAPENTIN 300 MG CAPSULE PO SCH (08:34)
[2023-03-25] MEDS: ALLOPURINOL 100 MG TABLET PO SCH (08:34)
[2023-03-25] MEDS: CLOTRIMAZOLE 1% 15 GM TUBE TP SCH ×2 (08:35→16:45)
[2023-03-25 08:40] VITALS: BP 119/60
[2023-03-25] MEDS: AMLODIPINE BESYLATE 10 MG TABLET PO SCH (08:40)
[2023-03-25] MEDS ORDERED: METR500T PO (08:46)
[2023-03-25] MEDS ORDERED: LEVO250T59 PO (08:46)
[2023-03-25 09:27] LABS: CALCIUM, SERUM 9.8 mg/dL (8.5-10.1); CREATININE 0.7 mg/dL (0.6-1.3); MAGNESIUM 1.4 mg/dL (1.8-2.4); POTASSIUM 3.7 mmol/L (3.5-5.1)
[2023-03-25] MEDS: MAGNESIUM OXIDE 400 MG TABLET PO SCH ×2 (10:22→11:18)
[2023-03-25] MEDS ORDERED: KETOROLAC TROMETHAMINE INJ 30 MG/ML VIAL IV ONE (10:30)
[2023-03-25] MEDS ORDERED: TEMA15CA5 PO (12:17)
[2023-03-25] MEDS: ENOXAPARIN SODIUM 40 MG/0.4 ML DISP.SYRIN SQ SCH (16:45)
--- NOTE | 2023-03-25 18:30 | NUR ---
SLATE CUTTER NOTE. PT IS A/OX4 AT THIS TIME. REPORT GIVEN TO BILLPOSTING SUPERVISOR AND RN AT [facility]. PT SIGNED DISCHARGE INSTRUCTIONS AND BELONGINGS LIST. ID BAND REMOVED AND IV REMOMVED. PT TOLORATED WELL. CN AWARE. PT LEFT UNIT ON [facility] WITH BILLPOSTING SUPERVISOR.
== END 2023-03-25 18:09 | disposition home health service (06) | DRG 392 ==
LOC: ER 17:39 → TELE 22:18 → MED 22:55
PROVIDERS: ADMIT Nurse Practitioner Acute Care; ATTEND Nurse Practitioner Acute Care
DX: A08.4 Viral intestinal infection, unspecified (principal); N39.0 Urinary tract infection, site not specified; E44.0 Moderate protein-calorie malnutrition; I69.354 Hemiplegia and hemiparesis following cerebral infarction affecting left non-dominant side; D68.69 Other thrombophilia; E11.9 Type 2 diabetes mellitus without complications; E83.42 Hypomagnesemia; I10 Essential (primary) hypertension; M19.90 Unspecified osteoarthritis, unspecified site; Z74.01 Bed confinement status; Z88.0 Allergy status to penicillin; Z90.49 Acquired absence of other specified parts of digestive tract; E78.5 Hyperlipidemia, unspecified; E66.01 Morbid (severe) obesity due to excess calories; J45.909 Unspecified asthma, uncomplicated; Z68.35 Body mass index [BMI] 35.0-35.9, adult; Z96.653 Presence of artificial knee joint, bilateral; D17.79 Benign lipomatous neoplasm of other sites; R53.1 Weakness; L30.4 Erythema intertrigo; L98.8 Other specified disorders of the skin and subcutaneous tissue; Z79.84 Long term (current) use of oral hypoglycemic drugs
CPT/HCPCS: 36415; 70450-TC; 71045-TC; 80048-TC; 80061-TC; 80076-TC; 81001; 82962-TC; 83605-TC; 83735-TC; 84100-TC; 84443-TC; 84484-TC; 85025-TC; 87040-TC; 87081-TC; 87086-TC; 97110-TC; 97530-TC; A4216; A4223; A6253; G0378; J1650; J1815; J1885; J1956; J2270; J2405; J3475; J7030; J7050

== ENCOUNTER 2023-05-03 11:55 | Emergency (ER) | payer BC, OTHER ==
[~2023-05-03] VITALS: Ht 152.4 cm; Wt 76.2 kg
[~2023-05-03 11:55] MED LIST changes: +ACET-868 PO; +ALBU8.5H8 IH; +ALLO300T2 PO; +AMLO10TA4 PO; +ATOR10TA PO; -CIPR-262 PO; +DICLOFENAC GEL TP; +DONE10TA44 PO; +ESCI5TAB PO; +GABA300C PO; +HYDR-4303 PO; +IXEK80SY3 SQ; +LATA2.5D15 EACHEYE; +LEVO250T59 PO; +LOPE2CAP PO; +METF-440 PO; +METH750T3 PO; +METR500T PO; +MONT10TA22 PO; -MOXI3DRO EACHEYE; -NITR100C6 PO; +NYST500P2 TP; +ONDA4TAB5 PO; +PANT40TA2 PO; +SENN-261 PO; +TEMA15CA5 PO; +TRAM50TA2 PO
[2023-05-03] MEDS ORDERED: ONDANSETRON HCL/PF 4 MG/2 ML VIAL IVP ONE (12:30)
[2023-05-03] MEDS ORDERED: FAMOTIDINE/PF INJ 20 MG/2 ML VIAL IV ONE ×2 (12:30→12:33)
[2023-05-03] MEDS ORDERED: IV NS 0.9% 1,000 ML BAG IV ONE (12:30)
[2023-05-03] MEDS ORDERED: ONDANSETRON HCL/PF 4 MG/2 ML VIAL ONE (12:33)
[2023-05-03 12:44] LABS: BASOPHILS # (AUTO) 0.1 K/uL (0.0-0.2); BASOPHILS % (AUTO) 0.8 % (0.0-2.0); EOSINOPHILS # (AUTO) 0.1 K/uL (0.0-0.7); EOSINOPHILS % (AUTO) 2.1 % (0.0-6.0); HEMATOCRIT 40 % (33-45); HEMOGLOBIN 12.8 g/dL (11.5-14.8); LYMPHOCYTES # (AUTO) 1.4 K/uL (0.8-4.8); LYMPHOCYTES % (AUTO) 21.9 % (20.0-44.0); MEAN CORPUSCULAR HEMOGLOBIN 31 PG (26.0-33.0); MEAN CORPUSCULAR HGB CONC 32 g/dl (31.0-36.0); MEAN CORPUSCULAR VOLUME 97 fL (82-100); MONOCYTES # (AUTO) 0.4 K/uL (0.1-1.30); MONOCYTES % (AUTO) 5.8 % (2.0-12.0); NEUTROPHILS # (AUTO) 4.4 K/uL (1.8-8.9); NEUTROPHILS % (AUTO) 69.4 % (43.0-81.0); PLATELET COUNT (AUTO) 258 K/uL (150-450); RED BLOOD CELL COUNT(AUTO) 4.08 MIL/uL (4.0-5.2); RED CELL DISTRIBUTION WIDTH 15.3 % (11.5-15.0); WHITE BLOOD COUNT (AUTO) 6.3 K/uL (4.3-11.0)
[2023-05-03 13:18] LABS: ALANINE AMINOTRANSFERASE 12 U/L (12-78); ALBUMIN 3.8 g/dL (3.4-5.0); ALKALINE PHOSPHATASE 92 U/L (46-116); ASPARTATE AMINOTRANSFERASE 16 U/L (15-37); BILIRUBIN,DIRECT 0.1 mg/dL (0.0-0.2); BILIRUBIN,TOTAL 0.5 mg/dL (0.2-1.0); CALCIUM, SERUM 12.1 mg/dL (8.5-10.1); CARBON DIOXIDE 23 mmol/L (21-32); CHLORIDE 105 mmol/L (98-107); CREATININE 0.9 mg/dL (0.6-1.3); GLUCOSE 86 mg/dL (74-106); LIPASE 47 U/L (73-393); NT-PRO BNP 309 pg/mL (0-125); SODIUM SERUM 140 mmol/L (136-145); UREA NITROGEN, BLOOD 18 mg/dL (7-18)
[2023-05-03 14:20] LABS: APPEARANCE,URINE CLOUDY (CLEAR); BILIRUBIN,URINE NEGATIVE (NEGATIVE); BLOOD, URINE 1+ Ery/uL (NEGATIVE); COLOR,URINE YELLOW (YELLOW); KETONES,URINE TRACE mg/dL (NEGATIVE); LEUKOCYTE ESTERASE ,URINE 3+ (NEGATIVE); NITRITE, URINE POSITIVE (NEGATIVE); PH,URINE 5.5 (5.0-8.0); PROTEIN,URINE 2+ mg/dl (NEGATIVE); UGLUCOSE NEGATIVE (NEGATIVE); UROBILINOGEN,URINE 0.2 EU/dL (0.2)
[2023-05-03 14:53] LABS: ADD URINE CULTURE YES; BACTERIA,URINE 3+ /HPF (None Seen); MUCUS,URINE Moderate /LPF (None Seen); WBC,URINE TOO NUMEROUS TO COUN /HPF (0-3)
[2023-05-03] MEDS ORDERED: NITR100C PO (15:21)
[2023-05-03] MEDS ORDERED: CEFTRIAXONE 1GM BAG (ER ONLY) 1 GM/50 ML PIGGYBACK IV ONE (15:30)
[2023-05-03] MEDS ORDERED: KETOROLAC TROMETHAMINE INJ 30 MG/ML VIAL IV ONE (15:30)
[2023-05-03] MEDS ORDERED: CEFTRIAXONE 1GM BAG (ER ONLY) 50 ML IV ONE (15:35)
[2023-05-03] MEDS ORDERED: KETOROLAC TROMETHAMINE 15 MG/ML VIAL ONE (15:35)
[2023-05-03 19:03] VITALS: BP 130/70; TEMP 98.7; O2SAT 97
== END 2023-05-03 18:55 ==
LOC: ER 12:00
DX: N39.0 Urinary tract infection, site not specified (principal); R11.10 Vomiting, unspecified; I10 Essential (primary) hypertension; E78.5 Hyperlipidemia, unspecified; J45.909 Unspecified asthma, uncomplicated; E11.9 Type 2 diabetes mellitus without complications; K21.9 Gastro-esophageal reflux disease without esophagitis; Z79.899 Other long term (current) drug therapy; Z79.84 Long term (current) use of oral hypoglycemic drugs; Z88.0 Allergy status to penicillin; Z88.1 Allergy status to other antibiotic agents
CPT/HCPCS: 99285; 74176; 96365; 96375; 71045; 96361; 93005; 85025; 80048; 87086; 83690; 80076; 81001; 36415; 84484; 83880; J3490; J2405; J7030; J0696; J1885

== ENCOUNTER 2023-05-25 21:38 | Emergency (ER) | payer BC, MEDICAID ==
[~2023-05-25] VITALS: Ht 152.4 cm; Wt 61.2 kg
[~2023-05-25 21:38] MED LIST changes: +NITR100C PO
[2023-05-25 22:00] VITALS: TEMP 97.8
[2023-05-25 22:35] LABS: BASOPHILS % (AUTO) 0.6 % (0.0-2.0); EOSINOPHILS # (AUTO) 0.2 K/uL (0.0-0.7); EOSINOPHILS % (AUTO) 2.9 % (0.0-6.0); HEMATOCRIT 40 % (33-45); LYMPHOCYTES # (AUTO) 1.3 K/uL (0.8-4.8); LYMPHOCYTES % (AUTO) 23.6 % (20.0-44.0); MEAN CORPUSCULAR HEMOGLOBIN 32 PG (26.0-33.0); MEAN CORPUSCULAR HGB CONC 32 g/dl (31.0-36.0); MEAN CORPUSCULAR VOLUME 97 fL (82-100); MONOCYTES # (AUTO) 0.4 K/uL (0.1-1.30); MONOCYTES % (AUTO) 7.6 % (2.0-12.0); NEUTROPHILS # (AUTO) 3.6 K/uL (1.8-8.9); NEUTROPHILS % (AUTO) 65.3 % (43.0-81.0); PLATELET COUNT (AUTO) 230 K/uL (150-450); RED BLOOD CELL COUNT(AUTO) 4.15 MIL/uL (4.0-5.2); RED CELL DISTRIBUTION WIDTH 15.6 % (11.5-15.0); WHITE BLOOD COUNT (AUTO) 5.5 K/uL (4.3-11.0)
[2023-05-25 22:44] LABS: CALCIUM, SERUM 12.4 mg/dL (8.5-10.1); CARBON DIOXIDE 25 mmol/L (21-32); CHLORIDE 105 mmol/L (98-107); CREATININE 1.2 mg/dL (0.6-1.3); GLUCOSE 94 mg/dL (74-106); POTASSIUM 4.5 mmol/L (3.5-5.1); SODIUM SERUM 138 mmol/L (136-145); UREA NITROGEN, BLOOD 24 mg/dL (7-18)
[2023-05-25 23:04] LABS: APPEARANCE,URINE CLOUDY (CLEAR); BILIRUBIN,URINE 1+ (NEGATIVE); BLOOD, URINE NEGATIVE Ery/uL (NEGATIVE); COLOR,URINE YELLOW (YELLOW); KETONES,URINE TRACE mg/dL (NEGATIVE); LEUKOCYTE ESTERASE ,URINE 2+ (NEGATIVE); NITRITE, URINE NEGATIVE (NEGATIVE); PH,URINE 5.5 (5.0-8.0); PROTEIN,URINE TRACE mg/dl (NEGATIVE); UGLUCOSE NEGATIVE (NEGATIVE); UROBILINOGEN,URINE 0.2 EU/dL (0.2)
[2023-05-25] MEDS ORDERED: MORPHINE SULFATE INJ 2 MG/ML DISP.SYRIN ONE (23:07)
[2023-05-25] MEDS: MORPHINE SULFATE INJ 2 MG/ML DISP.SYRIN IV ONE (23:08)
[2023-05-25 23:31] LABS: ADD URINE CULTURE YES; BACTERIA,URINE 2+ /HPF (None Seen); RBC,URINE 0-2 /HPF (0-2); WBC,URINE 21-50 /HPF (0-3)
[2023-05-25 23:32] LABS: CALCIUM OXALATE CRYSTALS,UR Rare /HPF (None Seen); MUCUS,URINE Few /LPF (None Seen)
[2023-05-25] MEDS ORDERED: NITR100C PO (23:40)
[2023-05-26 00:11] VITALS: BP 115/71; O2SAT 95
== END 2023-05-26 01:09 ==
LOC: ER 21:46
DX: N39.0 Urinary tract infection, site not specified (principal); M79.10 Myalgia, unspecified site; I10 Essential (primary) hypertension; E78.5 Hyperlipidemia, unspecified; J45.909 Unspecified asthma, uncomplicated; K21.9 Gastro-esophageal reflux disease without esophagitis; E11.9 Type 2 diabetes mellitus without complications; Z79.899 Other long term (current) drug therapy; Z98.890 Other specified postprocedural states; Z88.1 Allergy status to other antibiotic agents
CPT/HCPCS: 99283; 96374; 85025; 80048; 87086; 81001; 36415; J2270

== ENCOUNTER 2023-06-01 08:42 | Inpatient (IN) | payer OTHER ==
[~2023-06-01] VITALS: Ht 152.4 cm; Wt 72.6 kg
[2023-06-01] MEDS ORDERED: IV NS 0.9% 1,000 ML BAG IV ONE ×2 (09:00→12:00)
[2023-06-01] MEDS ORDERED: MORPHINE SULFATE INJ 2 MG/ML DISP.SYRIN IV ONE (09:00)
[2023-06-01] MEDS ORDERED: ONDANSETRON HCL/PF 4 MG/2 ML VIAL IVP ONE (09:00)
[2023-06-01] MEDS ORDERED: ONDANSETRON HCL/PF 4 MG/2 ML VIAL ONE (09:08)
[2023-06-01] MEDS ORDERED: MORPHINE SULFATE INJ 2 MG/ML DISP.SYRIN ONE (09:09)
[2023-06-01 09:29] LABS: BASOPHILS % (AUTO) 0.6 % (0.0-2.0); EOSINOPHILS # (AUTO) 0.1 K/uL (0.0-0.7); EOSINOPHILS % (AUTO) 1.7 % (0.0-6.0); HEMATOCRIT 40 % (33-45); LYMPHOCYTES # (AUTO) 1.6 K/uL (0.8-4.8); LYMPHOCYTES % (AUTO) 20.4 % (20.0-44.0); MEAN CORPUSCULAR HEMOGLOBIN 31 PG (26.0-33.0); MEAN CORPUSCULAR HGB CONC 32 g/dl (31.0-36.0); MEAN CORPUSCULAR VOLUME 97 fL (82-100); MONOCYTES # (AUTO) 0.6 K/uL (0.1-1.30); MONOCYTES % (AUTO) 7.5 % (2.0-12.0); NEUTROPHILS # (AUTO) 5.5 K/uL (1.8-8.9); NEUTROPHILS % (AUTO) 69.8 % (43.0-81.0); PLATELET COUNT (AUTO) 248 K/uL (150-450); RED BLOOD CELL COUNT(AUTO) 4.15 MIL/uL (4.0-5.2); RED CELL DISTRIBUTION WIDTH 15.8 % (11.5-15.0); WHITE BLOOD COUNT (AUTO) 7.8 K/uL (4.3-11.0)
[2023-06-01 10:01] LABS: ALBUMIN 3.6 g/dL (3.4-5.0); BILIRUBIN,DIRECT 0.2 mg/dL (0.0-0.2); BILIRUBIN,TOTAL 0.7 mg/dL (0.2-1.0); CALCIUM, SERUM 12.3 mg/dL (8.5-10.1); CREATININE 1.2 mg/dL (0.6-1.3); POTASSIUM 4.3 mmol/L (3.5-5.1); TOTAL PROTEIN, SERUM 6.8 g/dL (6.4-8.2)
[2023-06-01 10:39] LABS: APPEARANCE,URINE CLOUDY (CLEAR); BILIRUBIN,URINE NEGATIVE (NEGATIVE); BLOOD, URINE 1+ Ery/uL (NEGATIVE); COLOR,URINE YELLOW (YELLOW); KETONES,URINE 1+ mg/dL (NEGATIVE); LEUKOCYTE ESTERASE ,URINE 3+ (NEGATIVE); NITRITE, URINE POSITIVE (NEGATIVE); PROTEIN,URINE 1+ mg/dl (NEGATIVE); UGLUCOSE NEGATIVE (NEGATIVE); UROBILINOGEN,URINE 0.2 EU/dL (0.2)
[2023-06-01 11:24] LABS: ADD URINE CULTURE YES; BACTERIA,URINE 3+ /HPF (None Seen); WBC,URINE 51-80 /HPF (0-3)
[2023-06-01 11:25] LABS: CALCIUM OXALATE CRYSTALS,UR Rare /HPF (None Seen); MUCUS,URINE Moderate /LPF (None Seen)
[2023-06-01] MEDS ORDERED: GENT5DRO23 EACHEYE (11:48)
[2023-06-01] MEDS ORDERED: METO-295 PO (11:48)
[2023-06-01] MEDS ORDERED: FAMO40TA7 PO (11:48)
[2023-06-01] MEDS ORDERED: DICL100G34 TP (11:48)
[2023-06-01] MEDS ORDERED: ROSU5TAB13 PO (11:48)
[2023-06-01] MEDS ORDERED: DOXY100T2 PO (11:48)
[2023-06-01] MEDS ORDERED: LEVOFLOXACIN 500 MG /D5W 100ML 500 MG/100 ML PIGGYBACK IV ONE (12:00)
[2023-06-01] MEDS ORDERED: LEVOFLOXACIN 500 MG /D5W 100ML 100 ML IV ONE (12:12)
[2023-06-01] MEDS ORDERED: ONDANSETRON HCL/PF 4 MG/2 ML VIAL IVP PRN (15:00)
[2023-06-01] MEDS ORDERED: ACETAMINOPHEN 325 MG TABLET PO PRN (15:00)
[2023-06-01] MEDS ORDERED: MAG HYDROX/AL HYDROX/SIMETH 30 ML UDC PO PRN (15:00)
[2023-06-01] MEDS ORDERED: MAGNESIUM HYDROXIDE 30 ML UDC PO PRN (15:00)
[2023-06-01] MEDS ORDERED: METOCLOPRAMIDE HCL 10 MG TABLET PO PRN (15:00)
[2023-06-01] MEDS ORDERED: ONDANSETRON 4 MG TAB.RAPDIS PO PRN (15:00)
[2023-06-01] MEDS ORDERED: ALBUTEROL FS 2.5 MG/0.5 ML VIAL.NEB NEB PRN (15:00)
[2023-06-01] MEDS ORDERED: LEVOFLOXACIN 500 MG /D5W 100ML 500 MG in PREMIX 1 EA IV SCH (15:00)
[2023-06-01] MEDS ORDERED: Z GUARD REMEDY 4 OZ OINT TP PRN (15:00)
[2023-06-01] MEDS ORDERED: LOPERAMIDE HCL (2 MG CAP) 2 MG CAPSULE PO PRN (15:00)
[2023-06-01] MEDS ORDERED: DEXTROSE 50%-WATER 50 ML DISP.SYRIN IV PRN (15:00)
[2023-06-01 16:00] VITALS: BP 112/63; TEMP 97.3; O2SAT 98
[2023-06-01] MEDS: TRAMADOL HCL 50 MG TABLET PO PRN (16:29)
[2023-06-01] MEDS: ENOXAPARIN SODIUM 30 MG/0.3 ML DISP.SYRIN SQ SCH (16:30)
[2023-06-01] MEDS: IV NS 0.9% 1,000 ML IV PRN (16:31)
[2023-06-01] MEDS: INSULIN REGULAR, HUMAN 100 UNIT/ML 3 ML VIAL SQ PRN (17:45)
[2023-06-01] MEDS: BLOOD SUGAR DIAGNOSTIC 1 EACH STRIP VI SCH ×2 (17:45→21:25)
[2023-06-01 20:00] VITALS: BP 115/43; TEMP 97.5; O2SAT 98
[2023-06-01] MEDS: GABAPENTIN 300 MG CAPSULE PO SCH (20:01)
[2023-06-01] MEDS: MONTELUKAST SODIUM (10MG) 10 MG TABLET PO SCH (21:03)
[2023-06-01] MEDS: FAMOTIDINE (20 MG) 20 MG TABLET PO SCH (21:04)
[2023-06-01] MEDS: DONEPEZIL 5 MG TABLET PO SCH (21:04)
[2023-06-01] MEDS: *INSULIN REGULAR(HUMULIN R)HUM 100 UNIT/ML VIAL SQ PRN (21:25)
[2023-06-02] VITALS: BP 112/71; TEMP 97.5; O2SAT 98
[2023-06-02] MEDS: TRAMADOL HCL 50 MG TABLET PO PRN ×2 (00:01→14:35)
[2023-06-02] MEDS: IV NS 0.9% 1,000 ML IV PRN ×2 (03:19→18:37)
[2023-06-02 05:00] VITALS: BP 117/74; TEMP 98.6; O2SAT 97
[2023-06-02] MEDS: BLOOD SUGAR DIAGNOSTIC 1 EACH STRIP VI SCH ×4 (05:45→21:14)
[2023-06-02] MEDS: INSULIN REGULAR, HUMAN 100 UNIT/ML 3 ML VIAL SQ PRN ×3 (05:46→16:34)
[2023-06-02 06:25] LABS: BASOPHILS % (AUTO) 0.5 % (0.0-2.0); EOSINOPHILS # (AUTO) 0.1 K/uL (0.0-0.7); EOSINOPHILS % (AUTO) 2.7 % (0.0-6.0); HEMATOCRIT 35 % (33-45); HEMOGLOBIN 11.3 g/dL (11.5-14.8); LYMPHOCYTES % (AUTO) 20.1 % (20.0-44.0); MEAN CORPUSCULAR HEMOGLOBIN 32 PG (26.0-33.0); MEAN CORPUSCULAR HGB CONC 32 g/dl (31.0-36.0); MEAN CORPUSCULAR VOLUME 99 fL (82-100); MONOCYTES # (AUTO) 0.4 K/uL (0.1-1.30); MONOCYTES % (AUTO) 6.8 % (2.0-12.0); NEUTROPHILS # (AUTO) 3.6 K/uL (1.8-8.9); NEUTROPHILS % (AUTO) 69.9 % (43.0-81.0); PLATELET COUNT (AUTO) 183 K/uL (150-450); RED CELL DISTRIBUTION WIDTH 15.6 % (11.5-15.0); WHITE BLOOD COUNT (AUTO) 5.2 K/uL (4.3-11.0)
[2023-06-02 07:41] LABS: CALCIUM, SERUM 10.1 mg/dL (8.5-10.1); CARBON DIOXIDE 21 mmol/L (21-32); CHLORIDE 106 mmol/L (98-107); GLUCOSE 100 mg/dL (74-106); PHOSPHORUS 1.7 mg/dL (2.5-4.9); POTASSIUM 4.2 mmol/L (3.5-5.1); SODIUM SERUM 137 mmol/L (136-145); UREA NITROGEN, BLOOD 19 mg/dL (7-18)
[2023-06-02 08:00] VITALS: BP 107/63; TEMP 98.6; O2SAT 99
[2023-06-02] MEDS: ESCITALOPRAM OXALATE (10 MG) 10 MG TABLET PO SCH (08:12)
[2023-06-02] MEDS: GABAPENTIN 300 MG CAPSULE PO SCH ×2 (08:12→21:14)
[2023-06-02] MEDS: AMLODIPINE BESYLATE 10 MG TABLET PO SCH (08:12)
[2023-06-02] MEDS: ALLOPURINOL 100 MG TABLET PO SCH (08:12)
[2023-06-02 09:06] LABS: MAGNESIUM 1.1 mg/dL (1.8-2.4)
[2023-06-02] MEDS: LEVOFLOXACIN (250MG) 250 MG TABLET PO SCH (11:50)
[2023-06-02 12:00] VITALS: BP 159/59; TEMP 98.6; O2SAT 98
[2023-06-02] MEDS ORDERED: LEVOFLOXACIN 250 MG /D5W 50 ML 250 MG in PREMIX 1 EA IV SCH (12:00)
[2023-06-02] MEDS: Magnesium 1GM/D5W 100ML PREMIX 100 ML IV SCH ×2 (12:12→13:13)
[2023-06-02] MEDS ORDERED: NEUTRA PHOS 1 POWD.PACKET PO ONE (13:00)
[2023-06-02] MEDS: ENOXAPARIN SODIUM 30 MG/0.3 ML DISP.SYRIN SQ SCH (14:36)
[2023-06-02 16:00] VITALS: BP 96/63; TEMP 99; O2SAT 98
[2023-06-02] MEDS: BENEFIBER 4 GM 1 EA PACKET PO SCH (17:00)
[2023-06-02] MEDS: ACETAMINOPHEN 325 MG TABLET PO PRN (18:36)
[2023-06-02 20:00] VITALS: BP 128/74; TEMP 98.6; O2SAT 96
[2023-06-02] MEDS: MONTELUKAST SODIUM (10MG) 10 MG TABLET PO SCH (21:14)
[2023-06-02] MEDS: FAMOTIDINE (20 MG) 20 MG TABLET PO SCH (21:14)
[2023-06-02] MEDS: DONEPEZIL 5 MG TABLET PO SCH (21:14)
[2023-06-03] VITALS: BP 121/75; TEMP 98.2; O2SAT 97
[2023-06-03 04:00] VITALS: BP 107/69; TEMP 98.2; O2SAT 99
[2023-06-03] MEDS: IV NS 0.9% 1,000 ML IV PRN ×2 (06:02→21:31)
[2023-06-03] MEDS: BLOOD SUGAR DIAGNOSTIC 1 EACH STRIP VI SCH ×4 (06:03→22:28)
[2023-06-03 06:53] LABS: BASOPHILS % (AUTO) 0.3 % (0.0-2.0); EOSINOPHILS # (AUTO) 0.1 K/uL (0.0-0.7); EOSINOPHILS % (AUTO) 2.6 % (0.0-6.0); HEMATOCRIT 35 % (33-45); HEMOGLOBIN 11.1 g/dL (11.5-14.8); LYMPHOCYTES # (AUTO) 0.9 K/uL (0.8-4.8); LYMPHOCYTES % (AUTO) 21.5 % (20.0-44.0); MEAN CORPUSCULAR HEMOGLOBIN 32 PG (26.0-33.0); MEAN CORPUSCULAR HGB CONC 32 g/dl (31.0-36.0); MEAN CORPUSCULAR VOLUME 98 fL (82-100); MONOCYTES # (AUTO) 0.3 K/uL (0.1-1.30); MONOCYTES % (AUTO) 7.8 % (2.0-12.0); NEUTROPHILS # (AUTO) 2.9 K/uL (1.8-8.9); NEUTROPHILS % (AUTO) 67.8 % (43.0-81.0); PLATELET COUNT (AUTO) 183 K/uL (150-450); RED BLOOD CELL COUNT(AUTO) 3.52 MIL/uL (4.0-5.2); RED CELL DISTRIBUTION WIDTH 15.7 % (11.5-15.0); WHITE BLOOD COUNT (AUTO) 4.2 K/uL (4.3-11.0)
[2023-06-03 07:32] LABS: CALCIUM, SERUM 9.2 mg/dL (8.5-10.1); CARBON DIOXIDE 20 mmol/L (21-32); CHLORIDE 106 mmol/L (98-107); CREATININE 0.8 mg/dL (0.6-1.3); GLUCOSE 87 mg/dL (74-106); MAGNESIUM 1.7 mg/dL (1.8-2.4); PHOSPHORUS 2.1 mg/dL (2.5-4.9); POTASSIUM 4.4 mmol/L (3.5-5.1); SODIUM SERUM 135 mmol/L (136-145); UREA NITROGEN, BLOOD 15 mg/dL (7-18)
[2023-06-03 08:00] VITALS: BP 111/57; TEMP 97.9; O2SAT 100
[2023-06-03 08:41] LABS: CREATININE, URINE 41.5 MG/DL (30.0-125.0); URINE TOTAL PROTEIN 40.7 mg/dL (0-11.9)
[2023-06-03] MEDS: GABAPENTIN 300 MG CAPSULE PO SCH ×2 (08:49→21:20)
[2023-06-03] MEDS: ESCITALOPRAM OXALATE (10 MG) 10 MG TABLET PO SCH (08:49)
[2023-06-03] MEDS: ALLOPURINOL 100 MG TABLET PO SCH (08:50)
[2023-06-03] MEDS: GLUCERNA SHAKE 237 ML CAN PO SCH (08:50)
[2023-06-03] MEDS: AMLODIPINE BESYLATE 10 MG TABLET PO SCH (08:50)
[2023-06-03] MEDS: TRAMADOL HCL 50 MG TABLET PO PRN (08:59)
[2023-06-03] MEDS: MAGNESIUM OXIDE 400 MG TABLET PO SCH (08:59)
[2023-06-03] MEDS: BENEFIBER 4 GM 1 EA PACKET PO SCH ×2 (09:00→17:00)
[2023-06-03] MEDS ORDERED: MAGNESIUM OXIDE 400 MG TABLET PO ONE (10:00)
[2023-06-03] MEDS ORDERED: K PHOS NEUTRAL 250 MG TABLET PO ONE (10:00)
[2023-06-03] MEDS: VANCOMYCIN 1.25 GM in IV D5W 250 ML IV SCH (10:35)
[2023-06-03 12:00] VITALS: BP 96/49; TEMP 98.4; O2SAT 98
[2023-06-03] MEDS: LEVOFLOXACIN (250MG) 250 MG TABLET PO SCH (12:06)
[2023-06-03] MEDS: ENOXAPARIN SODIUM 30 MG/0.3 ML DISP.SYRIN SQ SCH (15:39)
[2023-06-03 16:00] VITALS: BP 97/41; TEMP 99.1; O2SAT 97
[2023-06-03] MEDS ORDERED: MAGNESIUM HYDROXIDE 30 ML UDC PO PRN (16:00)
[2023-06-03] MEDS: CLOTRIMAZOLE 1% 15 GM TUBE TP SCH (17:13)
[2023-06-03] MEDS ORDERED: NEUTRA PHOS 1 POWD.PACKET PO ONE (18:00)
[2023-06-03 20:00] VITALS: BP 100/50; TEMP 98.1; O2SAT 96
[2023-06-03] MEDS: MONTELUKAST SODIUM (10MG) 10 MG TABLET PO SCH (21:20)
[2023-06-03] MEDS: DONEPEZIL 5 MG TABLET PO SCH (21:20)
[2023-06-03] MEDS: FAMOTIDINE (20 MG) 20 MG TABLET PO SCH (21:20)
[2023-06-03] MEDS: *INSULIN REGULAR(HUMULIN R)HUM 100 UNIT/ML VIAL SQ PRN (22:29)
[2023-06-04] VITALS: BP 107/63; TEMP 97.6; O2SAT 96
[2023-06-04] MEDS: ACETAMINOPHEN 325 MG TABLET PO PRN (03:55)
[2023-06-04 04:00] VITALS: BP 110/60; TEMP 97.8; O2SAT 96
[2023-06-04] MEDS: BLOOD SUGAR DIAGNOSTIC 1 EACH STRIP VI SCH ×3 (06:30→16:41)
[2023-06-04] MEDS: INSULIN REGULAR, HUMAN 100 UNIT/ML 3 ML VIAL SQ PRN ×2 (06:30→11:57)
[2023-06-04 07:44] LABS: BASOPHILS % (AUTO) 0.5 % (0.0-2.0); EOSINOPHILS # (AUTO) 0.1 K/uL (0.0-0.7); EOSINOPHILS % (AUTO) 2.7 % (0.0-6.0); HEMATOCRIT 32 % (33-45); HEMOGLOBIN 10.2 g/dL (11.5-14.8); LYMPHOCYTES # (AUTO) 0.8 K/uL (0.8-4.8); LYMPHOCYTES % (AUTO) 17.2 % (20.0-44.0); MEAN CORPUSCULAR HEMOGLOBIN 32 PG (26.0-33.0); MEAN CORPUSCULAR HGB CONC 32 g/dl (31.0-36.0); MEAN CORPUSCULAR VOLUME 98 fL (82-100); MONOCYTES # (AUTO) 0.4 K/uL (0.1-1.30); MONOCYTES % (AUTO) 8.7 % (2.0-12.0); NEUTROPHILS # (AUTO) 3.1 K/uL (1.8-8.9); NEUTROPHILS % (AUTO) 70.9 % (43.0-81.0); PLATELET COUNT (AUTO) 193 K/uL (150-450); RED BLOOD CELL COUNT(AUTO) 3.24 MIL/uL (4.0-5.2); RED CELL DISTRIBUTION WIDTH 15.4 % (11.5-15.0); WHITE BLOOD COUNT (AUTO) 4.4 K/uL (4.3-11.0)
[2023-06-04 08:00] VITALS: BP 99/62; TEMP 97.3; O2SAT 97
[2023-06-04 08:10] LABS: ALANINE AMINOTRANSFERASE 9 U/L (12-78); ALBUMIN 2.3 g/dL (3.4-5.0); ALKALINE PHOSPHATASE 80 U/L (46-116); ASPARTATE AMINOTRANSFERASE 14 U/L (15-37); BILIRUBIN,TOTAL 0.4 mg/dL (0.2-1.0); CALCIUM, SERUM 9.4 mg/dL (8.5-10.1); CARBON DIOXIDE 23 mmol/L (21-32); CHLORIDE 107 mmol/L (98-107); CREATININE 0.8 mg/dL (0.6-1.3); GLUCOSE 85 mg/dL (74-106); MAGNESIUM 1.3 mg/dL (1.8-2.4); PHOSPHORUS 2.5 mg/dL (2.5-4.9); POTASSIUM 4.1 mmol/L (3.5-5.1); SODIUM SERUM 136 mmol/L (136-145); TOTAL PROTEIN, SERUM 4.9 g/dL (6.4-8.2); UREA NITROGEN, BLOOD 13 mg/dL (7-18)
[2023-06-04] MEDS: AMLODIPINE BESYLATE 10 MG TABLET PO SCH (09:00)
[2023-06-04] MEDS: ALLOPURINOL 100 MG TABLET PO SCH (09:15)
[2023-06-04] MEDS: GABAPENTIN 300 MG CAPSULE PO SCH ×2 (09:15→21:04)
[2023-06-04] MEDS: GLUCERNA SHAKE 237 ML CAN PO SCH (09:16)
[2023-06-04] MEDS: MAGNESIUM OXIDE 400 MG TABLET PO SCH (09:16)
[2023-06-04] MEDS: ESCITALOPRAM OXALATE (10 MG) 10 MG TABLET PO SCH (09:16)
[2023-06-04] MEDS: CLOTRIMAZOLE 1% 15 GM TUBE TP SCH ×2 (09:17→16:42)
[2023-06-04] MEDS ORDERED: MAGNESIUM OXIDE 400 MG TABLET PO ONE (10:30)
[2023-06-04] MEDS: VANCOMYCIN 1.25 GM in IV D5W 250 ML IV SCH (10:54)
[2023-06-04] MEDS: Magnesium 1GM/D5W 100ML PREMIX 100 ML IV SCH ×4 (10:55→14:44)
[2023-06-04] MEDS: BENEFIBER 4 GM 1 EA PACKET PO SCH ×2 (10:55→16:42)
[2023-06-04] MEDS: LEVOFLOXACIN (250MG) 250 MG TABLET PO SCH (13:31)
[2023-06-04] MEDS: TRAMADOL HCL 50 MG TABLET PO PRN ×2 (13:33→22:51)
[2023-06-04 16:00] VITALS: BP 110/69; TEMP 98.1; O2SAT 97
[2023-06-04] MEDS: ENOXAPARIN SODIUM 30 MG/0.3 ML DISP.SYRIN SQ SCH (16:41)
[2023-06-04 20:00] VITALS: BP 104/51; TEMP 98.6; O2SAT 97
[2023-06-04] MEDS: FAMOTIDINE (20 MG) 20 MG TABLET PO SCH (21:04)
[2023-06-04] MEDS: MONTELUKAST SODIUM (10MG) 10 MG TABLET PO SCH (21:04)
[2023-06-04] MEDS: DONEPEZIL 5 MG TABLET PO SCH (21:04)
[2023-06-05] VITALS: BP 112/55; TEMP 98.3; O2SAT 100
[2023-06-05] MEDS: BLOOD SUGAR DIAGNOSTIC 1 EACH STRIP VI SCH ×5 (00:13→22:00)
[2023-06-05] MEDS: *INSULIN REGULAR(HUMULIN R)HUM 100 UNIT/ML VIAL SQ PRN (00:14)
[2023-06-05 04:00] VITALS: BP 116/60; TEMP 97.7; O2SAT 99
[2023-06-05] MEDS: IV NS 0.9% 1,000 ML IV PRN (06:16)
[2023-06-05 08:00] VITALS: BP 113/66; TEMP 98; O2SAT 99
[2023-06-05] MEDS: GLUCERNA SHAKE 237 ML CAN PO SCH (08:30)
[2023-06-05] MEDS: BENEFIBER 4 GM 1 EA PACKET PO SCH ×2 (08:30→16:49)
[2023-06-05] MEDS: GABAPENTIN 300 MG CAPSULE PO SCH ×2 (08:31→22:14)
[2023-06-05] MEDS: ESCITALOPRAM OXALATE (10 MG) 10 MG TABLET PO SCH (08:31)
[2023-06-05] MEDS: MAGNESIUM OXIDE 400 MG TABLET PO SCH (08:31)
[2023-06-05] MEDS: CLOTRIMAZOLE 1% 15 GM TUBE TP SCH ×2 (08:32→16:50)
[2023-06-05] MEDS: AMLODIPINE BESYLATE 10 MG TABLET PO SCH (08:32)
[2023-06-05] MEDS: ALLOPURINOL 100 MG TABLET PO SCH (08:32)
[2023-06-05 08:59] LABS: BASOPHILS % (AUTO) 0.3 % (0.0-2.0); EOSINOPHILS # (AUTO) 0.1 K/uL (0.0-0.7); EOSINOPHILS % (AUTO) 2.8 % (0.0-6.0); HEMATOCRIT 32 % (33-45); HEMOGLOBIN 10.4 g/dL (11.5-14.8); LYMPHOCYTES # (AUTO) 0.9 K/uL (0.8-4.8); LYMPHOCYTES % (AUTO) 22.7 % (20.0-44.0); MEAN CORPUSCULAR HEMOGLOBIN 31 PG (26.0-33.0); MEAN CORPUSCULAR HGB CONC 32 g/dl (31.0-36.0); MEAN CORPUSCULAR VOLUME 98 fL (82-100); MONOCYTES # (AUTO) 0.3 K/uL (0.1-1.30); MONOCYTES % (AUTO) 8.5 % (2.0-12.0); NEUTROPHILS # (AUTO) 2.6 K/uL (1.8-8.9); NEUTROPHILS % (AUTO) 65.7 % (43.0-81.0); PLATELET COUNT (AUTO) 190 K/uL (150-450)
[2023-06-05 09:20] LABS: CALCIUM, SERUM 8.9 mg/dL (8.5-10.1); CREATININE 0.8 mg/dL (0.6-1.3); MAGNESIUM 1.7 mg/dL (1.8-2.4); POTASSIUM 3.7 mmol/L (3.5-5.1)
[2023-06-05] MEDS: VANCOMYCIN 1.25 GM in IV D5W 250 ML IV SCH (12:01)
[2023-06-05] MEDS: LEVOFLOXACIN (250MG) 250 MG TABLET PO SCH (12:02)
[2023-06-05] MEDS: ENOXAPARIN SODIUM 30 MG/0.3 ML DISP.SYRIN SQ SCH (15:47)
[2023-06-05 16:00] VITALS: BP 110/75; TEMP 98; TEMP 99.1; O2SAT 99
[2023-06-05 20:00] VITALS: BP 106/62; TEMP 98.6; O2SAT 95; O2SAT 96
[2023-06-05] MEDS: ACETAMINOPHEN 325 MG TABLET PO PRN (20:11)
[2023-06-05] MEDS: DONEPEZIL 5 MG TABLET PO SCH (22:14)
[2023-06-05] MEDS: FAMOTIDINE (20 MG) 20 MG TABLET PO SCH (22:15)
[2023-06-05] MEDS: MONTELUKAST SODIUM (10MG) 10 MG TABLET PO SCH (22:15)
[2023-06-05] MEDS: TRAMADOL HCL 50 MG TABLET PO PRN (23:04)
[2023-06-06] MEDS: IV NS 0.9% 1,000 ML IV PRN (05:36)
[2023-06-06] MEDS: BLOOD SUGAR DIAGNOSTIC 1 EACH STRIP VI SCH ×2 (07:30→11:49)
[2023-06-06] MEDS: AMLODIPINE BESYLATE 10 MG TABLET PO SCH (09:00)
[2023-06-06 09:27] VITALS: BP 98/56; TEMP 97.5; O2SAT 96
[2023-06-06] MEDS: TRAMADOL HCL 50 MG TABLET PO PRN (09:45)
[2023-06-06] MEDS ORDERED: ASPI-1169 PO (10:03)
[2023-06-06] MEDS ORDERED: CEPH500C2 PO (10:03)
[2023-06-06] MEDS: BENEFIBER 4 GM 1 EA PACKET PO SCH (10:09)
[2023-06-06] MEDS: GLUCERNA SHAKE 237 ML CAN PO SCH (10:10)
[2023-06-06] MEDS: GABAPENTIN 300 MG CAPSULE PO SCH (10:10)
[2023-06-06] MEDS: ALLOPURINOL 100 MG TABLET PO SCH (10:10)
[2023-06-06] MEDS: MAGNESIUM OXIDE 400 MG TABLET PO SCH (10:10)
[2023-06-06] MEDS: ESCITALOPRAM OXALATE (10 MG) 10 MG TABLET PO SCH (10:10)
[2023-06-06] MEDS: CLOTRIMAZOLE 1% 15 GM TUBE TP SCH (11:50)
[2023-06-06 11:58] LABS: BASOPHILS % (AUTO) 0.5 % (0.0-2.0); EOSINOPHILS # (AUTO) 0.1 K/uL (0.0-0.7); EOSINOPHILS % (AUTO) 2.6 % (0.0-6.0); HEMATOCRIT 32 % (33-45); HEMOGLOBIN 10.4 g/dL (11.5-14.8); LYMPHOCYTES # (AUTO) 0.9 K/uL (0.8-4.8); LYMPHOCYTES % (AUTO) 19.2 % (20.0-44.0); MEAN CORPUSCULAR HEMOGLOBIN 32 PG (26.0-33.0); MEAN CORPUSCULAR HGB CONC 32 g/dl (31.0-36.0); MEAN CORPUSCULAR VOLUME 98 fL (82-100); MONOCYTES # (AUTO) 0.4 K/uL (0.1-1.30); NEUTROPHILS # (AUTO) 3.2 K/uL (1.8-8.9); NEUTROPHILS % (AUTO) 69.7 % (43.0-81.0); PLATELET COUNT (AUTO) 207 K/uL (150-450); RED BLOOD CELL COUNT(AUTO) 3.29 MIL/uL (4.0-5.2); WHITE BLOOD COUNT (AUTO) 4.5 K/uL (4.3-11.0)
[2023-06-06] MEDS: VANCOMYCIN 1.25 GM in IV D5W 250 ML IV SCH (12:01)
[2023-06-06 12:13] LABS: CREATININE 0.9 mg/dL (0.6-1.3); MAGNESIUM 1.5 mg/dL (1.8-2.4); PHOSPHORUS 2.6 mg/dL (2.5-4.9); POTASSIUM 3.7 mmol/L (3.5-5.1)
[2023-06-06] MEDS: LEVOFLOXACIN (250MG) 250 MG TABLET PO SCH (12:38)
[2023-06-07] MEDS ORDERED: VANCOMYCIN 1 GM in IV D5W 250ml IV SCH (12:00)
== END 2023-06-06 16:11 | DRG 690 ==
LOC: ER 09:17 → TELE 15:04 → MED 06-05 12:05
PROVIDERS: ADMIT Internal Medicine; ATTEND Internal Medicine
DX: N39.0 Urinary tract infection, site not specified (principal); D68.59 Other primary thrombophilia; E44.0 Moderate protein-calorie malnutrition; I69.354 Hemiplegia and hemiparesis following cerebral infarction affecting left non-dominant side; N17.9 Acute kidney failure, unspecified; E11.9 Type 2 diabetes mellitus without complications; E78.5 Hyperlipidemia, unspecified; I10 Essential (primary) hypertension; B96.89 Other specified bacterial agents as the cause of diseases classified elsewhere; K57.90 Diverticulosis of intestine, part unspecified, without perforation or abscess without bleeding; E83.42 Hypomagnesemia; Z74.01 Bed confinement status; Z90.49 Acquired absence of other specified parts of digestive tract; D17.79 Benign lipomatous neoplasm of other sites; E66.9 Obesity, unspecified; D64.9 Anemia, unspecified; E83.39 Other disorders of phosphorus metabolism; E88.09 Other disorders of plasma-protein metabolism, not elsewhere classified; F32.A Depression, unspecified; G62.9 Polyneuropathy, unspecified; Z96.653 Presence of artificial knee joint, bilateral; S30.0XXA Contusion of lower back and pelvis, initial encounter; X58.XXXA Exposure to other specified factors, initial encounter; Y93.9 Activity, unspecified; Y92.129 Unspecified place in nursing home as the place of occurrence of the external cause; M19.90 Unspecified osteoarthritis, unspecified site; L30.4 Erythema intertrigo; N20.0 Calculus of kidney; N21.0 Calculus in bladder; Z79.84 Long term (current) use of oral hypoglycemic drugs; Z79.899 Other long term (current) drug therapy; Z88.0 Allergy status to penicillin; Z88.1 Allergy status to other antibiotic agents; Z88.8 Allergy status to other drugs, medicaments and biological substances; Z91.018 Allergy to other foods; K21.9 Gastro-esophageal reflux disease without esophagitis
CPT/HCPCS: 36415; 71045-TC; 76770-TC; 80048-TC; 80053-TC; 80076-TC; 80202-TC; 81001; 82570-TC; 82962-TC; 83605-TC; 83690-TC; 83735-TC; 84100-TC; 84300-TC; 85025-TC; 87040-TC; 87086-TC; 97110-TC; 97530-TC; A4216; A4223; A6403; G0378; J1650; J1815; J1956; J2270; J2405; J3370; J3475; J7030; J7060

== ENCOUNTER 2023-07-05 14:49 | Inpatient (IN) | payer OTHER, MEDICAID ==
[~2023-07-05] VITALS: Ht 152.4 cm; Wt 64.9 kg
[~2023-07-05 14:49] MED LIST changes: +ASPI-1169 PO; -ATOR10TA PO; +CEPH500C2 PO; +DICL100G34 TP; -DICLOFENAC GEL TP; +FAMO40TA7 PO; +GENT5DRO23 EACHEYE; -HYDR-4303 PO; -LEVO250T59 PO; +METO-295 PO; -METR500T PO; -NYST500P2 TP; -PANT40TA2 PO; +ROSU5TAB13 PO; -TEMA15CA5 PO
[2023-07-05 15:49] LABS: BASOPHILS % (AUTO) 0.2 % (0.0-2.0); EOSINOPHILS # (AUTO) 0.1 K/uL (0.0-0.7); EOSINOPHILS % (AUTO) 1.2 % (0.0-6.0); HEMATOCRIT 39 % (33-45); HEMOGLOBIN 12.8 g/dL (11.5-14.8); LYMPHOCYTES # (AUTO) 1.7 K/uL (0.8-4.8); LYMPHOCYTES % (AUTO) 18.6 % (20.0-44.0); MEAN CORPUSCULAR HEMOGLOBIN 32 PG (26.0-33.0); MEAN CORPUSCULAR HGB CONC 33 g/dl (31.0-36.0); MEAN CORPUSCULAR VOLUME 98 fL (82-100); MONOCYTES # (AUTO) 0.3 K/uL (0.1-1.30); MONOCYTES % (AUTO) 3.9 % (2.0-12.0); NEUTROPHILS # (AUTO) 6.8 K/uL (1.8-8.9); NEUTROPHILS % (AUTO) 76.1 % (43.0-81.0); PLATELET COUNT (AUTO) 239 K/uL (150-450); RED BLOOD CELL COUNT(AUTO) 4.02 MIL/uL (4.0-5.2); RED CELL DISTRIBUTION WIDTH 15.1 % (11.5-15.0)
[2023-07-05 16:03] LABS: ALANINE AMINOTRANSFERASE 19 U/L (12-78); ALBUMIN 3.5 g/dL (3.4-5.0); ALKALINE PHOSPHATASE 123 U/L (46-116); ASPARTATE AMINOTRANSFERASE 17 U/L (15-37); BILIRUBIN,DIRECT 0.2 mg/dL (0.0-0.2); BILIRUBIN,TOTAL 0.8 mg/dL (0.2-1.0); CALCIUM, SERUM 12.5 mg/dL (8.5-10.1); CARBON DIOXIDE 23 mmol/L (21-32); CHLORIDE 101 mmol/L (98-107); CREATININE 1.5 mg/dL (0.6-1.3); GLUCOSE 60 mg/dL (74-106); LIPASE 203 U/L (16-77); SODIUM SERUM 137 mmol/L (136-145); TOTAL PROTEIN, SERUM 6.6 g/dL (6.4-8.2); UREA NITROGEN, BLOOD 28 mg/dL (7-18)
[2023-07-05] MEDS ORDERED: IV NS 0.9% 1,000 ML BAG IV ONE (16:30)
[2023-07-05] MEDS ORDERED: ASPI-1169 PO (17:44)
[2023-07-05 19:39] LABS: APPEARANCE,URINE TURBID (CLEAR); BILIRUBIN,URINE 1+ (NEGATIVE); BLOOD, URINE 2+ Ery/uL (NEGATIVE); COLOR,URINE YELLOW (YELLOW); KETONES,URINE TRACE mg/dL (NEGATIVE); LEUKOCYTE ESTERASE ,URINE 3+ (NEGATIVE); NITRITE, URINE POSITIVE (NEGATIVE); PH,URINE 7.5 (5.0-8.0); PROTEIN,URINE 2+ mg/dl (NEGATIVE); UGLUCOSE NEGATIVE (NEGATIVE); UROBILINOGEN,URINE 0.2 EU/dL (0.2)
[2023-07-05 20:00] VITALS: BP 104/64; TEMP 98.1; O2SAT 98
[2023-07-05] MEDS ORDERED: MORPHINE SULFATE INJ 2 MG/ML DISP.SYRIN IV PRN (20:00)
[2023-07-05] MEDS ORDERED: PANTOPRAZOLE 40 MG VIAL IV SCH (20:00)
[2023-07-05] MEDS ORDERED: MAG HYDROX/AL HYDROX/SIMETH 30 ML UDC PO PRN (20:00)
[2023-07-05] MEDS ORDERED: Z GUARD REMEDY 4 OZ OINT TP PRN (20:00)
[2023-07-05] MEDS ORDERED: IV NS 0.9% 1,000 ML IV PRN (20:00)
[2023-07-05] MEDS ORDERED: ACETAMINOPHEN 325 MG TABLET PO PRN (20:00)
[2023-07-05] MEDS ORDERED: ONDANSETRON HCL/PF 4 MG/2 ML VIAL IVP PRN (20:00)
[2023-07-05] MEDS ORDERED: ZOLPIDEM TARTRATE 5 MG TABLET PO PRN (20:00)
[2023-07-05] MEDS ORDERED: MAGNESIUM HYDROXIDE 30 ML UDC PO PRN (20:00)
[2023-07-05] MEDS ORDERED: LOPERAMIDE HCL (2 MG CAP) 2 MG CAPSULE PO PRN (20:30)
[2023-07-05] MEDS ORDERED: METHOCARBAMOL (750MG) 750 MG TABLET PO PRN (20:30)
[2023-07-05] MEDS ORDERED: ALBUTEROL FS 2.5 MG/3 ML VIAL.NEB IH PRN (20:30)
[2023-07-05] MEDS: IV D5/ 0.9% NACL 1,000 ML IV PRN (20:55)
[2023-07-05] MEDS: GABAPENTIN 300 MG CAPSULE PO SCH (20:56)
[2023-07-05] MEDS: LATANOPROST EYE DROP 0.005% 2.5 ML BOTTLE EACHEYE SCH (21:12)
[2023-07-05] MEDS: CEFTRIAXONE 1 G in IV D5W 50 ML IV SCH (21:12)
[2023-07-05 21:23] LABS: BACTERIA,URINE Moderate /HPF (None Seen); SQUAMOUS EPITHELIAL CELL,UR Moderate /HPF (None Seen)
[2023-07-05 21:24] LABS: ADD URINE CULTURE YES; RBC,URINE 21-50 /HPF (0-2); WBC,URINE 51-80 /HPF (0-3)
[2023-07-05] MEDS: MONTELUKAST SODIUM (10MG) 10 MG TABLET PO SCH (22:07)
[2023-07-05] MEDS: ATORVASTATIN 10 MG TABLET PO SCH (22:07)
[2023-07-05] MEDS: SENNOSIDES 8.6 MG TABLET PO SCH (22:07)
[2023-07-05] MEDS: DONEPEZIL 5 MG TABLET PO SCH (22:07)
[2023-07-05] MEDS: HYDROCODONE/APAP 5/325MG TABLET PO PRN (22:08)
[2023-07-06 05:47] LABS: BASOPHILS % (AUTO) 0.5 % (0.0-2.0); EOSINOPHILS # (AUTO) 0.1 K/uL (0.0-0.7); EOSINOPHILS % (AUTO) 1.3 % (0.0-6.0); HEMATOCRIT 39 % (33-45); HEMOGLOBIN 12.3 g/dL (11.5-14.8); LYMPHOCYTES # (AUTO) 1.5 K/uL (0.8-4.8); LYMPHOCYTES % (AUTO) 21.5 % (20.0-44.0); MEAN CORPUSCULAR HEMOGLOBIN 32 PG (26.0-33.0); MEAN CORPUSCULAR HGB CONC 32 g/dl (31.0-36.0); MEAN CORPUSCULAR VOLUME 100 fL (82-100); MONOCYTES # (AUTO) 0.5 K/uL (0.1-1.30); MONOCYTES % (AUTO) 7.1 % (2.0-12.0); NEUTROPHILS # (AUTO) 4.7 K/uL (1.8-8.9); NEUTROPHILS % (AUTO) 69.6 % (43.0-81.0); PLATELET COUNT (AUTO) 176 K/uL (150-450); RED BLOOD CELL COUNT(AUTO) 3.87 MIL/uL (4.0-5.2); RED CELL DISTRIBUTION WIDTH 15.7 % (11.5-15.0); WHITE BLOOD COUNT (AUTO) 6.8 K/uL (4.3-11.0)
[2023-07-06 05:56] LABS: CALCIUM, SERUM 11.3 mg/dL (8.5-10.1); CREATININE 1.3 mg/dL (0.6-1.3); PHOSPHORUS 2.6 mg/dL (2.5-4.9); POTASSIUM 4.2 mmol/L (3.5-5.1)
[2023-07-06 06:04] LABS: THYROID STIMULATING HORMONE 3.384 uIU/mL (0.358-3.74)
[2023-07-06 07:09] LABS: MAGNESIUM 1.1 mg/dL (1.8-2.4)
[2023-07-06 08:00] VITALS: BP 116/63; TEMP 97.9; O2SAT 99
[2023-07-06] MEDS: ASPIRIN 81 MG TAB.CHEW PO SCH (08:16)
[2023-07-06] MEDS: AMLODIPINE BESYLATE 10 MG TABLET PO SCH (08:16)
[2023-07-06] MEDS: GABAPENTIN 300 MG CAPSULE PO SCH ×2 (08:17→20:39)
[2023-07-06] MEDS: ESCITALOPRAM OXALATE (10 MG) 10 MG TABLET PO SCH (08:17)
[2023-07-06] MEDS: HYDROCODONE/APAP 5/325MG TABLET PO PRN ×2 (08:37→18:41)
[2023-07-06] MEDS: IV D5/ 0.9% NACL 1,000 ML IV PRN (11:23)
[2023-07-06] MEDS ORDERED: Magnesium 1GM/D5W 100ML PREMIX PIGGYBACK IV ONE (12:30)
[2023-07-06] MEDS: Magnesium 1GM/D5W 100ML PREMIX 100 ML IV SCH ×2 (12:41→13:47)
[2023-07-06] MEDS: CLOTRIMAZOLE 1% 15 GM TUBE TP SCH ×2 (13:48→16:02)
[2023-07-06] MEDS: THERAHONEY GEL 1.5 OZ TUBE TP SCH (14:00)
[2023-07-06 16:00] VITALS: BP 103/62; TEMP 98.1; O2SAT 98
[2023-07-06] MEDS ORDERED: CLOTRIMAZOLE 1% 15 GM TUBE TP SCH (17:00)
[2023-07-06 20:00] VITALS: BP 102/65; TEMP 98.4; O2SAT 99
[2023-07-06] MEDS: CEFTRIAXONE 1 G in IV D5W 50 ML IV SCH (20:28)
[2023-07-06] MEDS: MONTELUKAST SODIUM (10MG) 10 MG TABLET PO SCH (21:17)
[2023-07-06] MEDS: ATORVASTATIN 10 MG TABLET PO SCH (21:17)
[2023-07-06] MEDS: DONEPEZIL 5 MG TABLET PO SCH (21:17)
[2023-07-06] MEDS: SENNOSIDES 8.6 MG TABLET PO SCH (21:17)
[2023-07-06] MEDS: LATANOPROST EYE DROP 0.005% 2.5 ML BOTTLE EACHEYE SCH (21:20)
[2023-07-07] MEDS: IV D5/ 0.9% NACL 1,000 ML IV PRN ×2 (02:58→17:39)
[2023-07-07 06:54] LABS: BASOPHILS % (AUTO) 0.3 % (0.0-2.0); EOSINOPHILS # (AUTO) 0.1 K/uL (0.0-0.7); HEMATOCRIT 34 % (33-45); HEMOGLOBIN 10.9 g/dL (11.5-14.8); LYMPHOCYTES % (AUTO) 14.6 % (20.0-44.0); MEAN CORPUSCULAR HEMOGLOBIN 32 PG (26.0-33.0); MEAN CORPUSCULAR HGB CONC 32 g/dl (31.0-36.0); MEAN CORPUSCULAR VOLUME 99 fL (82-100); MONOCYTES # (AUTO) 0.4 K/uL (0.1-1.30); MONOCYTES % (AUTO) 5.5 % (2.0-12.0); NEUTROPHILS # (AUTO) 5.3 K/uL (1.8-8.9); NEUTROPHILS % (AUTO) 77.6 % (43.0-81.0); PLATELET COUNT (AUTO) 166 K/uL (150-450); RED BLOOD CELL COUNT(AUTO) 3.46 MIL/uL (4.0-5.2); RED CELL DISTRIBUTION WIDTH 15.3 % (11.5-15.0); WHITE BLOOD COUNT (AUTO) 6.9 K/uL (4.3-11.0)
[2023-07-07 06:55] LABS: ALANINE AMINOTRANSFERASE 12 U/L (12-78); ALBUMIN 2.4 g/dL (3.4-5.0); ALKALINE PHOSPHATASE 94 U/L (46-116); ASPARTATE AMINOTRANSFERASE 13 U/L (15-37); BILIRUBIN,TOTAL 0.4 mg/dL (0.2-1.0); CALCIUM, SERUM 10.4 mg/dL (8.5-10.1); CARBON DIOXIDE 22 mmol/L (21-32); CHLORIDE 105 mmol/L (98-107); CREATININE 1.2 mg/dL (0.6-1.3); GLUCOSE 99 mg/dL (74-106); MAGNESIUM 1.6 mg/dL (1.8-2.4); PHOSPHORUS 1.8 mg/dL (2.5-4.9); POTASSIUM 3.4 mmol/L (3.5-5.1); SODIUM SERUM 136 mmol/L (136-145); TOTAL PROTEIN, SERUM 5.1 g/dL (6.4-8.2); UREA NITROGEN, BLOOD 20 mg/dL (7-18)
[2023-07-07 07:00] VITALS: BP 111/62; TEMP 98.1; O2SAT 98
[2023-07-07] MEDS: ASPIRIN 81 MG TAB.CHEW PO SCH (08:14)
[2023-07-07] MEDS: GABAPENTIN 300 MG CAPSULE PO SCH ×2 (08:14→20:38)
[2023-07-07] MEDS: AMLODIPINE BESYLATE 10 MG TABLET PO SCH (08:15)
[2023-07-07] MEDS: ESCITALOPRAM OXALATE (10 MG) 10 MG TABLET PO SCH (08:15)
[2023-07-07] MEDS: THERAHONEY GEL 1.5 OZ TUBE TP SCH (08:16)
[2023-07-07] MEDS: CLOTRIMAZOLE 1% 15 GM TUBE TP SCH ×2 (08:17→16:24)
[2023-07-07] MEDS ORDERED: MAGNESIUM OXIDE 400 MG TABLET PO ONE (09:30)
[2023-07-07] MEDS ORDERED: POTASSIUM CHLORIDE 20 MEQ TAB.PRT.SR PO ONE (09:30)
[2023-07-07] MEDS: HYDROCODONE/APAP 5/325MG TABLET PO PRN ×2 (11:41→18:07)
[2023-07-07] MEDS: PROSOURCE / PROSTAT (PYXIS) 30 ML UDC PO SCH ×2 (12:02→16:17)
[2023-07-07 16:00] VITALS: BP 106/66; TEMP 97.5; O2SAT 98
[2023-07-07] MEDS ORDERED: K PHOS NEUTRAL 250 MG TABLET PO ONE (16:00)
[2023-07-07] MEDS: CEFTRIAXONE 1 G in IV D5W 50 ML IV SCH (20:23)
[2023-07-07] MEDS: PANTOPRAZOLE 40 MG TABLET.DR PO SCH (20:38)
[2023-07-07] MEDS: LATANOPROST EYE DROP 0.005% 2.5 ML BOTTLE EACHEYE SCH (21:36)
[2023-07-07] MEDS: ATORVASTATIN 10 MG TABLET PO SCH (21:37)
[2023-07-07] MEDS: SENNOSIDES 8.6 MG TABLET PO SCH (21:37)
[2023-07-07] MEDS: DONEPEZIL 5 MG TABLET PO SCH (21:37)
[2023-07-07] MEDS: MONTELUKAST SODIUM (10MG) 10 MG TABLET PO SCH (21:37)
[2023-07-07 23:00] VITALS: BP 115/69; TEMP 98; O2SAT 99
[2023-07-08 06:08] LABS: CALCIUM, SERUM 9.7 mg/dL (8.5-10.1); CREATININE 0.9 mg/dL (0.6-1.3); PHOSPHORUS 1.7 mg/dL (2.5-4.9); POTASSIUM 3.3 mmol/L (3.5-5.1)
[2023-07-08] MEDS: Magnesium 1GM/D5W 100ML PREMIX PIGGYBACK IV SCH ×2 (06:46→08:04)
[2023-07-08] MEDS: ASPIRIN 81 MG TAB.CHEW PO SCH (08:04)
[2023-07-08] MEDS: ESCITALOPRAM OXALATE (10 MG) 10 MG TABLET PO SCH (08:04)
[2023-07-08] MEDS: GABAPENTIN 300 MG CAPSULE PO SCH ×2 (08:04→20:32)
[2023-07-08] MEDS: THERAHONEY GEL 1.5 OZ TUBE TP SCH (08:05)
[2023-07-08] MEDS: CLOTRIMAZOLE 1% 15 GM TUBE TP SCH ×2 (08:05→17:57)
[2023-07-08] MEDS: PROSOURCE / PROSTAT (PYXIS) 30 ML UDC PO SCH ×3 (08:19→17:38)
[2023-07-08] MEDS: AMLODIPINE BESYLATE 10 MG TABLET PO SCH (08:19)
[2023-07-08 08:41] VITALS: BP_SYST 122; BP_SYST 99; BP_DIAS 57; BP_DIAS 60; TEMP 97.9; TEMP 98.4; O2SAT 100; O2SAT 96
[2023-07-08] MEDS ORDERED: POTASSIUM CHLORIDE 20 MEQ TAB.PRT.SR PO ONE (11:00)
[2023-07-08] MEDS: IV D5/ 0.9% NACL 1,000 ML IV PRN (11:38)
[2023-07-08] MEDS: MUPIROCIN OINT 2% 22 GM TUBE NS SCH ×2 (12:41→20:36)
[2023-07-08] MEDS ORDERED: NEUTRA PHOS 1 POWD.PACKET NG ONE (13:00)
[2023-07-08] MEDS: Magnesium 1GM/D5W 100ML PREMIX 100 ML IV SCH ×2 (15:51→17:56)
[2023-07-08 15:56] VITALS: BP 103/54; TEMP 97.7; O2SAT 99
[2023-07-08 20:00] VITALS: BP 119/104; TEMP 97.7; O2SAT 100
[2023-07-08] MEDS: PANTOPRAZOLE 40 MG TABLET.DR PO SCH (20:32)
[2023-07-08] MEDS: CEFTRIAXONE 1 G in IV D5W 50 ML IV SCH (20:32)
[2023-07-08] MEDS: DONEPEZIL 5 MG TABLET PO SCH (22:15)
[2023-07-08] MEDS: ATORVASTATIN 10 MG TABLET PO SCH (22:15)
[2023-07-08] MEDS: MONTELUKAST SODIUM (10MG) 10 MG TABLET PO SCH (22:15)
[2023-07-08] MEDS: SENNOSIDES 8.6 MG TABLET PO SCH (22:16)
[2023-07-08] MEDS: LATANOPROST EYE DROP 0.005% 2.5 ML BOTTLE EACHEYE SCH (22:20)
[2023-07-08 23:00] VITALS: BP 123/82; TEMP 98; O2SAT 99
[2023-07-09 05:57] LABS: CALCIUM, SERUM 9.8 mg/dL (8.5-10.1); PHOSPHORUS 1.9 mg/dL (2.5-4.9); POTASSIUM 3.9 mmol/L (3.5-5.1)
[2023-07-09] MEDS: IV D5/ 0.9% NACL 1,000 ML IV PRN (06:12)
[2023-07-09 08:00] VITALS: BP 100/60; TEMP 97.6; O2SAT 100
[2023-07-09] MEDS: PROSOURCE / PROSTAT (PYXIS) 30 ML UDC PO SCH ×2 (08:22→12:18)
[2023-07-09] MEDS ORDERED: NEUTRA PHOS 1 POWD.PACKET NG ONE (08:30)
[2023-07-09 09:00] VITALS: BP 100/60
[2023-07-09] MEDS: AMLODIPINE BESYLATE 10 MG TABLET PO SCH (09:00)
[2023-07-09] MEDS: ESCITALOPRAM OXALATE (10 MG) 10 MG TABLET PO SCH (09:10)
[2023-07-09] MEDS: GABAPENTIN 300 MG CAPSULE PO SCH (09:10)
[2023-07-09] MEDS: ASPIRIN 81 MG TAB.CHEW PO SCH (09:10)
[2023-07-09] MEDS: MUPIROCIN OINT 2% 22 GM TUBE NS SCH (09:12)
[2023-07-09] MEDS: THERAHONEY GEL 1.5 OZ TUBE TP SCH (09:12)
[2023-07-09] MEDS: CLOTRIMAZOLE 1% 15 GM TUBE TP SCH (09:12)
[2023-07-09] MEDS: HYDROCODONE/APAP 5/325MG TABLET PO PRN (14:18)
== END 2023-07-09 15:39 | DRG 438 ==
LOC: ER 14:52 → MED 19:13
PROVIDERS: ADMIT Nurse Practitioner Acute Care
DX: K85.90 Acute pancreatitis without necrosis or infection, unspecified (principal); G93.41 Metabolic encephalopathy; N17.0 Acute kidney failure with tubular necrosis; N39.0 Urinary tract infection, site not specified; E44.0 Moderate protein-calorie malnutrition; I69.354 Hemiplegia and hemiparesis following cerebral infarction affecting left non-dominant side; D68.69 Other thrombophilia; F01.53 Vascular dementia, unspecified severity, with mood disturbance; A04.72 Enterocolitis due to Clostridium difficile, not specified as recurrent; B96.4 Proteus (mirabilis) (morganii) as the cause of diseases classified elsewhere; E83.42 Hypomagnesemia; E78.5 Hyperlipidemia, unspecified; E66.9 Obesity, unspecified; I10 Essential (primary) hypertension; K21.9 Gastro-esophageal reflux disease without esophagitis; M19.90 Unspecified osteoarthritis, unspecified site; L30.4 Erythema intertrigo; Z79.84 Long term (current) use of oral hypoglycemic drugs; Z88.0 Allergy status to penicillin; Z96.653 Presence of artificial knee joint, bilateral; Z79.82 Long term (current) use of aspirin; E11.9 Type 2 diabetes mellitus without complications; F32.A Depression, unspecified; M89.8X9 Other specified disorders of bone, unspecified site; Z74.09 Other reduced mobility; E88.09 Other disorders of plasma-protein metabolism, not elsewhere classified; Z68.27 Body mass index [BMI] 27.0-27.9, adult; L89.156 Pressure-induced deep tissue damage of sacral region; L89.116 Pressure-induced deep tissue damage of right upper back; E83.52 Hypercalcemia; K57.30 Diverticulosis of large intestine without perforation or abscess without bleeding; Z79.4 Long term (current) use of insulin; L98.8 Other specified disorders of the skin and subcutaneous tissue
CPT/HCPCS: 36415; 80048-TC; 80053-TC; 80061-TC; 80076-TC; 81001; 83690-TC; 83735-TC; 84100-TC; 84443-TC; 85025-TC; 87081-TC; 87086-TC; 97110-TC; 97530-TC; A6253; A6403; C9113; G0378; J0696; J3475; J7040; J7042; J7060

== ENCOUNTER 2023-08-22 16:47 | Inpatient (IN) | payer OTHER ==
[~2023-08-22] VITALS: Ht 152.4 cm; Wt 118.0 kg
[~2023-08-22 16:47] MED LIST changes: -CEPH500C2 PO; -GENT5DRO23 EACHEYE; -NITR100C PO
[2023-08-22] MEDS ORDERED: IV NS 0.9% 1,000 ML BAG IV ONE (18:30)
[2023-08-22 19:30] LABS: BASOPHILS # (AUTO) 0.2 K/uL (0.0-0.2); BASOPHILS % (AUTO) 2.4 % (0.0-2.0); EOSINOPHILS # (AUTO) 0.1 K/uL (0.0-0.7); EOSINOPHILS % (AUTO) 1.7 % (0.0-6.0); HEMATOCRIT 35 % (33-45); LYMPHOCYTES # (AUTO) 1.3 K/uL (0.8-4.8); LYMPHOCYTES % (AUTO) 17.2 % (20.0-44.0); MEAN CORPUSCULAR HEMOGLOBIN 32 PG (26.0-33.0); MEAN CORPUSCULAR HGB CONC 32 g/dl (31.0-36.0); MEAN CORPUSCULAR VOLUME 101 fL (82-100); MONOCYTES # (AUTO) 0.3 K/uL (0.1-1.30); MONOCYTES % (AUTO) 4.1 % (2.0-12.0); NEUTROPHILS # (AUTO) 5.7 K/uL (1.8-8.9); NEUTROPHILS % (AUTO) 74.6 % (43.0-81.0); PLATELET COUNT (AUTO) 315 K/uL (150-450); RED BLOOD CELL COUNT(AUTO) 3.44 MIL/uL (4.0-5.2); RED CELL DISTRIBUTION WIDTH 16.3 % (11.5-15.0); WHITE BLOOD COUNT (AUTO) 7.6 K/uL (4.3-11.0)
[2023-08-22 20:19] LABS: ALANINE AMINOTRANSFERASE 7 U/L (12-78); ALBUMIN 2.5 g/dL (3.4-5.0); ALKALINE PHOSPHATASE 121 U/L (46-116); ASPARTATE AMINOTRANSFERASE 17 U/L (15-37); BILIRUBIN,DIRECT 0.2 mg/dL (0.0-0.2); BILIRUBIN,TOTAL 0.5 mg/dL (0.2-1.0); CARBON DIOXIDE 22 mmol/L (21-32); CHLORIDE 103 mmol/L (98-107); CREATININE 0.9 mg/dL (0.6-1.3); GLUCOSE 69 mg/dL (74-106); LIPASE 13 U/L (16-77); POTASSIUM 3.7 mmol/L (3.5-5.1); SODIUM SERUM 136 mmol/L (136-145); TOTAL PROTEIN, SERUM 5.7 g/dL (6.4-8.2); UREA NITROGEN, BLOOD 20 mg/dL (7-18)
[2023-08-22] MEDS ORDERED: IOHEXOL-300 100 ML VIAL IV ONE (21:36)
[2023-08-22] MEDS ORDERED: IV NS 0.9% 250 ML IV ONE (21:36)
[2023-08-22 22:26] LABS: APPEARANCE,URINE TURBID (CLEAR); COLOR,URINE DARK YELLOW (YELLOW)
[2023-08-22 22:27] LABS: BILIRUBIN,URINE NEGATIVE (NEGATIVE); BLOOD, URINE 2+ Ery/uL (NEGATIVE); KETONES,URINE NEGATIVE (NEGATIVE); LEUKOCYTE ESTERASE ,URINE 2+ (NEGATIVE); NITRITE, URINE NEGATIVE (NEGATIVE); PROTEIN,URINE 2+ mg/dl (NEGATIVE); UGLUCOSE NEGATIVE (NEGATIVE); UROBILINOGEN,URINE 0.2 EU/dL (0.2)
[2023-08-22 22:28] LABS: ADD URINE CULTURE YES; BACTERIA,URINE Moderate /HPF (None Seen); SQUAMOUS EPITHELIAL CELL,UR Rare /HPF (None Seen); WBC,URINE 21-50 /HPF (0-3)
[2023-08-22] MEDS ORDERED: MORPHINE SULFATE INJ 2 MG/ML DISP.SYRIN IV ONE (22:30)
[2023-08-22] MEDS ORDERED: CEFTRIAXONE 1 G in IV D5W 50 ML IV ONE (22:30)
[2023-08-22] MEDS ORDERED: CEFTRIAXONE 1GM BAG (ER ONLY) 50 ML IV ONE (23:00)
[2023-08-22] MEDS ORDERED: MORPHINE SULFATE INJ 2 MG/ML DISP.SYRIN ONE (23:01)
[2023-08-22 23:47] LABS: LACTIC ACID 0.9 mmol/L (0.4-2.0)
[2023-08-23] MEDS ORDERED: DEXTROSE 50%-WATER 50 ML DISP.SYRIN IV PRN (00:30)
[2023-08-23] MEDS ORDERED: MAGNESIUM HYDROXIDE 30 ML UDC PO PRN (00:30)
[2023-08-23] MEDS ORDERED: ONDANSETRON HCL/PF 4 MG/2 ML VIAL IVP PRN (00:30)
[2023-08-23] MEDS ORDERED: ENOXAPARIN SODIUM 40 MG/0.4 ML DISP.SYRIN SQ SCH (00:30)
[2023-08-23] MEDS ORDERED: ACETAMINOPHEN 325 MG TABLET PO PRN (00:30)
[2023-08-23] MEDS ORDERED: MAGNESIUM OXIDE 400 MG TABLET PO ONE (00:30)
[2023-08-23] MEDS: Magnesium 1GM/D5W 100ML PREMIX 100 ML IV SCH ×4 (00:30→03:30)
[2023-08-23] MEDS ORDERED: Z GUARD REMEDY 4 OZ OINT TP PRN (00:30)
[2023-08-23] MEDS ORDERED: METHOCARBAMOL (500MG) 500 MG TABLET PO ONE (01:00)
[2023-08-23] MEDS ORDERED: ALBUTEROL FS 2.5 MG/3 ML VIAL.NEB NEB PRN (01:30)
[2023-08-23] MEDS ORDERED: TRAMADOL HCL 50 MG TABLET PO PRN (01:30)
[2023-08-23] MEDS ORDERED: Magnesium 1GM/D5W 100ML PREMIX 200 ML IV ONE ×2 (01:38→04:01)
[2023-08-23] MEDS ORDERED: METHOCARBAMOL (500MG) 500 MG TABLET ONE (01:53)
[2023-08-23] MEDS ORDERED: MAGNESIUM OXIDE 400 MG TABLET ONE (02:02)
[2023-08-23] MEDS: OFLOXACIN 0.3% OPHTH 5 ML BOTTLE EACHEYE SCH ×6 (02:03→21:57)
[2023-08-23] MEDS: PANTOPRAZOLE 40 MG TABLET.DR PO SCH (08:30)
[2023-08-23] MEDS ORDERED: PANTOPRAZOLE 40 MG TABLET.DR PO ONE (08:51)
[2023-08-23] MEDS: BLOOD SUGAR DIAGNOSTIC 1 EACH STRIP IN SCH ×4 (08:58→21:56)
[2023-08-23] MEDS: GABAPENTIN 300 MG CAPSULE PO SCH ×2 (09:00→21:59)
[2023-08-23] MEDS: ASPIRIN 81 MG TAB.CHEW PO SCH (09:00)
[2023-08-23] MEDS: AMLODIPINE BESYLATE 10 MG TABLET PO SCH (09:00)
[2023-08-23] MEDS ORDERED: ESCITALOPRAM OXALATE (10 MG) 10 MG TABLET PO SCH (09:00)
[2023-08-23] MEDS: ALLOPURINOL 100 MG TABLET PO SCH (09:00)
[2023-08-23] MEDS: INSULIN REGULAR, HUMAN 100 UNIT/ML 3 ML VIAL SQ PRN ×3 (11:56→21:56)
[2023-08-23] MEDS: HYDROCODONE/APAP 5/325MG TABLET PO PRN ×2 (12:48→18:30)
[2023-08-23] MEDS: IV NS 0.9% 1,000 ML IV PRN (14:32)
[2023-08-23 15:53] LABS: BASOPHILS % (AUTO) 0.3 % (0.0-2.0); EOSINOPHILS % (AUTO) 0.3 % (0.0-6.0); HEMATOCRIT 33 % (33-45); HEMOGLOBIN 10.6 g/dL (11.5-14.8); LYMPHOCYTES % (AUTO) 14.8 % (20.0-44.0); MEAN CORPUSCULAR HEMOGLOBIN 33 PG (26.0-33.0); MEAN CORPUSCULAR HGB CONC 32 g/dl (31.0-36.0); MEAN CORPUSCULAR VOLUME 102 fL (82-100); MONOCYTES # (AUTO) 0.5 K/uL (0.1-1.30); MONOCYTES % (AUTO) 7.5 % (2.0-12.0); NEUTROPHILS % (AUTO) 77.1 % (43.0-81.0); PLATELET COUNT (AUTO) 272 K/uL (150-450); RED BLOOD CELL COUNT(AUTO) 3.26 MIL/uL (4.0-5.2); RED CELL DISTRIBUTION WIDTH 16.9 % (11.5-15.0); WHITE BLOOD COUNT (AUTO) 6.4 K/uL (4.3-11.0)
[2023-08-23 16:08] LABS: CALCIUM, SERUM 10.3 mg/dL (8.5-10.1); POTASSIUM 3.9 mmol/L (3.5-5.1)
[2023-08-23 18:08] LABS: ALBUMIN 2.2 g/dL (3.4-5.0); BILIRUBIN,TOTAL 0.3 mg/dL (0.2-1.0); CALCIUM, SERUM 10.3 mg/dL (8.5-10.1); PHOSPHORUS 2.3 mg/dL (2.5-4.9); POTASSIUM 3.9 mmol/L (3.5-5.1); TOTAL PROTEIN, SERUM 5.2 g/dL (6.4-8.2)
[2023-08-23] MEDS: QUETIAPINE FUMARATE 25 MG TABLET PO SCH (18:19)
[2023-08-23 20:21] VITALS: BP 121/61; TEMP 98; O2SAT 99
[2023-08-23] MEDS: CEFTRIAXONE 1 G in IV D5W 50 ML IV SCH (21:57)
[2023-08-23] MEDS: DONEPEZIL 5 MG TABLET PO SCH (21:59)
[2023-08-23] MEDS: SENNOSIDES 8.6 MG TABLET PO SCH (21:59)
[2023-08-23] MEDS: MONTELUKAST SODIUM (10MG) 10 MG TABLET PO SCH (21:59)
[2023-08-23] MEDS: ENOXAPARIN SODIUM 40 MG/0.4 ML DISP.SYRIN SQ SCH (22:01)
[2023-08-23] MEDS: LATANOPROST EYE DROP 0.005% 2.5 ML BOTTLE EACHEYE SCH (22:07)
[2023-08-24 00:08] VITALS: BP 108/59; TEMP 99; O2SAT 98
[2023-08-24] MEDS: OFLOXACIN 0.3% OPHTH 5 ML BOTTLE EACHEYE SCH ×6 (00:45→21:31)
[2023-08-24 04:06] VITALS: BP 115/60; TEMP 98; O2SAT 98
[2023-08-24] MEDS: IV NS 0.9% 1,000 ML IV PRN (05:11)
[2023-08-24] MEDS: HYDROCODONE/APAP 5/325MG TABLET PO PRN (07:03)
[2023-08-24 07:57] LABS: BASOPHILS % (AUTO) 0.5 % (0.0-2.0); EOSINOPHILS # (AUTO) 0.1 K/uL (0.0-0.7); HEMATOCRIT 30 % (33-45); HEMOGLOBIN 9.6 g/dL (11.5-14.8); LYMPHOCYTES # (AUTO) 1.1 K/uL (0.8-4.8); LYMPHOCYTES % (AUTO) 22.9 % (20.0-44.0); MEAN CORPUSCULAR HEMOGLOBIN 33 PG (26.0-33.0); MEAN CORPUSCULAR HGB CONC 32 g/dl (31.0-36.0); MEAN CORPUSCULAR VOLUME 101 fL (82-100); MONOCYTES # (AUTO) 0.3 K/uL (0.1-1.30); MONOCYTES % (AUTO) 6.6 % (2.0-12.0); NEUTROPHILS # (AUTO) 3.4 K/uL (1.8-8.9); PLATELET COUNT (AUTO) 256 K/uL (150-450); RED BLOOD CELL COUNT(AUTO) 2.96 MIL/uL (4.0-5.2); RED CELL DISTRIBUTION WIDTH 16.8 % (11.5-15.0)
[2023-08-24 08:00] VITALS: BP 96/60; TEMP 97.7; O2SAT 100
[2023-08-24] MEDS ORDERED: HYDROGEL DRESSING 90 GM TUBE TP PRN (08:00)
[2023-08-24] MEDS: BLOOD SUGAR DIAGNOSTIC 1 EACH STRIP IN SCH ×4 (08:18→21:32)
[2023-08-24] MEDS: ASPIRIN 81 MG TAB.CHEW PO SCH (08:18)
[2023-08-24] MEDS: PANTOPRAZOLE 40 MG TABLET.DR PO SCH (08:18)
[2023-08-24] MEDS: GABAPENTIN 300 MG CAPSULE PO SCH ×2 (08:19→21:30)
[2023-08-24] MEDS: QUETIAPINE FUMARATE 25 MG TABLET PO SCH ×2 (08:19→16:50)
[2023-08-24] MEDS: ALLOPURINOL 100 MG TABLET PO SCH (08:19)
[2023-08-24] MEDS: AMLODIPINE BESYLATE 10 MG TABLET PO SCH (08:20)
[2023-08-24] MEDS: ESCITALOPRAM OXALATE (10 MG) 10 MG TABLET PO SCH (08:42)
[2023-08-24] MEDS ORDERED: HYDROGEL DRESSING 90 GM TUBE TP SCH (09:00)
[2023-08-24] MEDS ORDERED: POTASSIUM PHOSPHATE MM 15 MMOL in IV NS 0.9% 250 ML IV SCH (11:00)
[2023-08-24 12:00] VITALS: BP 96/52; TEMP 98.2; O2SAT 100
[2023-08-24] MEDS: PROSOURCE / PROSTAT (PYXIS) 30 ML UDC PO SCH ×2 (12:37→16:50)
[2023-08-24] MEDS: POTASSIUM PHOSPHATE MM 7.5 MMOL in IV NS 0.9% 100 ML IV SCH ×2 (13:18→16:41)
[2023-08-24 16:00] VITALS: BP 98/63; TEMP 98.4; O2SAT 96
[2023-08-24] MEDS: ARGININE/GLUTAMINE/CALCIUM BMB 1 EACH POWD.PACK PO SCH (16:50)
[2023-08-24] MEDS: THERAHONEY GEL 1.5 OZ TUBE TP SCH (17:36)
[2023-08-24 19:54] LABS: CALCIUM, SERUM 9.6 mg/dL (8.5-10.1); POTASSIUM 4.3 mmol/L (3.5-5.1)
[2023-08-24 19:58] LABS: MAGNESIUM 1.6 mg/dL (1.8-2.4); PHOSPHORUS 3.3 mg/dL (2.5-4.9)
[2023-08-24 20:00] VITALS: BP 116/67; TEMP 98.6; O2SAT 96
[2023-08-24] MEDS ORDERED: Magnesium 1GM/D5W 100ML PREMIX PIGGYBACK IV ONE (20:30)
[2023-08-24] MEDS: SENNOSIDES 8.6 MG TABLET PO SCH (21:30)
[2023-08-24] MEDS: DONEPEZIL 5 MG TABLET PO SCH (21:30)
[2023-08-24] MEDS: ENOXAPARIN SODIUM 40 MG/0.4 ML DISP.SYRIN SQ SCH (21:30)
[2023-08-24] MEDS: MONTELUKAST SODIUM (10MG) 10 MG TABLET PO SCH (21:30)
[2023-08-24] MEDS: LATANOPROST EYE DROP 0.005% 2.5 ML BOTTLE EACHEYE SCH (21:31)
[2023-08-24] MEDS: CEFTRIAXONE 1 G in IV D5W 50 ML IV SCH (22:51)
[2023-08-25] VITALS: BP 99/57; TEMP 98.7; O2SAT 98
[2023-08-25] MEDS: OFLOXACIN 0.3% OPHTH 5 ML BOTTLE EACHEYE SCH ×6 (01:57→22:47)
[2023-08-25 04:00] VITALS: BP 97/57; TEMP 99; O2SAT 92
[2023-08-25 06:58] LABS: BASOPHILS % (AUTO) 0.4 % (0.0-2.0); EOSINOPHILS # (AUTO) 0.1 K/uL (0.0-0.7); EOSINOPHILS % (AUTO) 1.1 % (0.0-6.0); HEMATOCRIT 26 % (33-45); HEMOGLOBIN 8.5 g/dL (11.5-14.8); LYMPHOCYTES # (AUTO) 1.3 K/uL (0.8-4.8); LYMPHOCYTES % (AUTO) 28.9 % (20.0-44.0); MEAN CORPUSCULAR HEMOGLOBIN 33 PG (26.0-33.0); MEAN CORPUSCULAR HGB CONC 33 g/dl (31.0-36.0); MEAN CORPUSCULAR VOLUME 100 fL (82-100); MONOCYTES # (AUTO) 0.4 K/uL (0.1-1.30); MONOCYTES % (AUTO) 7.9 % (2.0-12.0); NEUTROPHILS # (AUTO) 2.8 K/uL (1.8-8.9); NEUTROPHILS % (AUTO) 61.7 % (43.0-81.0); PLATELET COUNT (AUTO) 223 K/uL (150-450); RED BLOOD CELL COUNT(AUTO) 2.58 MIL/uL (4.0-5.2); RED CELL DISTRIBUTION WIDTH 16.9 % (11.5-15.0); WHITE BLOOD COUNT (AUTO) 4.6 K/uL (4.3-11.0)
[2023-08-25 07:25] LABS: ALANINE AMINOTRANSFERASE < 6 U/L (12-78); ALBUMIN 1.6 g/dL (3.4-5.0); ALKALINE PHOSPHATASE 89 U/L (46-116); ASPARTATE AMINOTRANSFERASE 13 U/L (15-37); BILIRUBIN,TOTAL 0.1 mg/dL (0.2-1.0); CALCIUM, SERUM 9.5 mg/dL (8.5-10.1); CARBON DIOXIDE 21 mmol/L (21-32); CHLORIDE 107 mmol/L (98-107); CREATININE 0.9 mg/dL (0.6-1.3); GLUCOSE 86 mg/dL (74-106); PHOSPHORUS 2.7 mg/dL (2.5-4.9); POTASSIUM 3.8 mmol/L (3.5-5.1); SODIUM SERUM 136 mmol/L (136-145); UREA NITROGEN, BLOOD 34 mg/dL (7-18)
[2023-08-25 08:00] VITALS: BP 104/54; TEMP 97.7; O2SAT 95
[2023-08-25] MEDS: PANTOPRAZOLE 40 MG TABLET.DR PO SCH (08:14)
[2023-08-25] MEDS: BLOOD SUGAR DIAGNOSTIC 1 EACH STRIP IN SCH ×4 (08:14→22:43)
[2023-08-25] MEDS: INSULIN REGULAR, HUMAN 100 UNIT/ML 3 ML VIAL SQ PRN ×4 (08:15→22:43)
[2023-08-25] MEDS: DAKINS QUARTER STRENGTH (0.125%) 480 ML BOTTLE TOP SCH (09:00)
[2023-08-25] MEDS: AMLODIPINE BESYLATE 10 MG TABLET PO SCH (09:00)
[2023-08-25] MEDS: GABAPENTIN 300 MG CAPSULE PO SCH ×2 (09:06→22:45)
[2023-08-25] MEDS: ESCITALOPRAM OXALATE (10 MG) 10 MG TABLET PO SCH (09:06)
[2023-08-25] MEDS: ALLOPURINOL 100 MG TABLET PO SCH (09:07)
[2023-08-25] MEDS: QUETIAPINE FUMARATE 25 MG TABLET PO SCH ×2 (09:07→16:29)
[2023-08-25] MEDS: THERAHONEY GEL 1.5 OZ TUBE TP SCH (09:08)
[2023-08-25] MEDS: ASPIRIN 81 MG TAB.CHEW PO SCH (09:09)
[2023-08-25] MEDS: PROSOURCE / PROSTAT (PYXIS) 30 ML UDC PO SCH ×3 (09:15→16:29)
[2023-08-25] MEDS: ARGININE/GLUTAMINE/CALCIUM BMB 1 EACH POWD.PACK PO SCH ×2 (09:15→16:29)
[2023-08-25] MEDS ORDERED: CEPH500C2 PO (09:32)
[2023-08-25 16:00] VITALS: BP 92/61; TEMP 98.3; O2SAT 96
[2023-08-25 20:00] VITALS: BP 110/64; TEMP 97.8
[2023-08-25] MEDS: MONTELUKAST SODIUM (10MG) 10 MG TABLET PO SCH (22:45)
[2023-08-25] MEDS: SENNOSIDES 8.6 MG TABLET PO SCH (22:46)
[2023-08-25] MEDS: DONEPEZIL 5 MG TABLET PO SCH (22:46)
[2023-08-25] MEDS: LATANOPROST EYE DROP 0.005% 2.5 ML BOTTLE EACHEYE SCH (22:47)
[2023-08-25] MEDS: ENOXAPARIN SODIUM 40 MG/0.4 ML DISP.SYRIN SQ SCH (22:49)
[2023-08-25] MEDS: CEFTRIAXONE 1 G in IV D5W 50 ML IV SCH (22:56)
[2023-08-25] MEDS: HYDROCODONE/APAP 5/325MG TABLET PO PRN (23:13)
[2023-08-26] MEDS: OFLOXACIN 0.3% OPHTH 5 ML BOTTLE EACHEYE SCH ×4 (02:06→13:27)
[2023-08-26 04:00] VITALS: BP 118/66; TEMP 98.8
[2023-08-26] MEDS: HYDROCODONE/APAP 5/325MG TABLET PO PRN ×3 (04:14→14:42)
[2023-08-26 07:00] LABS: BASOPHILS % (AUTO) 0.5 % (0.0-2.0); EOSINOPHILS # (AUTO) 0.1 K/uL (0.0-0.7); EOSINOPHILS % (AUTO) 3.3 % (0.0-6.0); HEMATOCRIT 27 % (33-45); HEMOGLOBIN 8.9 g/dL (11.5-14.8); LYMPHOCYTES # (AUTO) 1.6 K/uL (0.8-4.8); LYMPHOCYTES % (AUTO) 35.5 % (20.0-44.0); MEAN CORPUSCULAR HEMOGLOBIN 34 PG (26.0-33.0); MEAN CORPUSCULAR HGB CONC 33 g/dl (31.0-36.0); MEAN CORPUSCULAR VOLUME 101 fL (82-100); MONOCYTES # (AUTO) 0.4 K/uL (0.1-1.30); MONOCYTES % (AUTO) 8.4 % (2.0-12.0); NEUTROPHILS # (AUTO) 2.4 K/uL (1.8-8.9); NEUTROPHILS % (AUTO) 52.3 % (43.0-81.0); PLATELET COUNT (AUTO) 218 K/uL (150-450); RED BLOOD CELL COUNT(AUTO) 2.64 MIL/uL (4.0-5.2); RED CELL DISTRIBUTION WIDTH 16.6 % (11.5-15.0); WHITE BLOOD COUNT (AUTO) 4.5 K/uL (4.3-11.0)
[2023-08-26] MEDS: PANTOPRAZOLE 40 MG TABLET.DR PO SCH (07:31)
[2023-08-26] MEDS: BLOOD SUGAR DIAGNOSTIC 1 EACH STRIP IN SCH ×2 (07:31→12:21)
[2023-08-26 07:32] LABS: ALBUMIN 1.7 g/dL (3.4-5.0); BILIRUBIN,TOTAL 0.1 mg/dL (0.2-1.0); CALCIUM, SERUM 9.4 mg/dL (8.5-10.1); CREATININE 1.1 mg/dL (0.6-1.3); POTASSIUM 4.3 mmol/L (3.5-5.1); TOTAL PROTEIN, SERUM 4.1 g/dL (6.4-8.2)
[2023-08-26] MEDS: INSULIN REGULAR, HUMAN 100 UNIT/ML 3 ML VIAL SQ PRN (07:35)
[2023-08-26 08:00] VITALS: BP 96/41; TEMP 98.1; O2SAT 98
[2023-08-26 09:00] VITALS: BP 96/41
[2023-08-26] MEDS: AMLODIPINE BESYLATE 10 MG TABLET PO SCH (09:00)
[2023-08-26] MEDS: ESCITALOPRAM OXALATE (10 MG) 10 MG TABLET PO SCH (09:42)
[2023-08-26] MEDS: QUETIAPINE FUMARATE 25 MG TABLET PO SCH (09:43)
[2023-08-26] MEDS: ASPIRIN 81 MG TAB.CHEW PO SCH (09:43)
[2023-08-26] MEDS: GABAPENTIN 300 MG CAPSULE PO SCH (09:43)
[2023-08-26] MEDS: ALLOPURINOL 100 MG TABLET PO SCH (09:43)
[2023-08-26] MEDS: THERAHONEY GEL 1.5 OZ TUBE TP SCH (09:44)
[2023-08-26] MEDS: DAKINS QUARTER STRENGTH (0.125%) 480 ML BOTTLE TOP SCH (09:44)
[2023-08-26] MEDS: PROSOURCE / PROSTAT (PYXIS) 30 ML UDC PO SCH ×2 (09:46→13:00)
[2023-08-26] MEDS: ARGININE/GLUTAMINE/CALCIUM BMB 1 EACH POWD.PACK PO SCH (09:46)
== END 2023-08-26 15:10 | DRG 640 ==
LOC: ER 16:54 → TRANSITION 23:28 → MEDSG1 08-23 08:38 → TELE1 08-23 12:03 → MEDSG1 08-25 08:39
PROVIDERS: ADMIT Nurse Practitioner Family; ATTEND Internal Medicine
DX: E86.0 Dehydration (principal); G93.41 Metabolic encephalopathy; L89.154 Pressure ulcer of sacral region, stage 4; N39.0 Urinary tract infection, site not specified; I69.354 Hemiplegia and hemiparesis following cerebral infarction affecting left non-dominant side; D68.69 Other thrombophilia; F03.92 Unspecified dementia, unspecified severity, with psychotic disturbance; F33.3 Major depressive disorder, recurrent, severe with psychotic symptoms; F03.93 Unspecified dementia, unspecified severity, with mood disturbance; E83.42 Hypomagnesemia; D50.9 Iron deficiency anemia, unspecified; E11.9 Type 2 diabetes mellitus without complications; E78.5 Hyperlipidemia, unspecified; E83.52 Hypercalcemia; E86.1 Hypovolemia; I10 Essential (primary) hypertension; J45.909 Unspecified asthma, uncomplicated; K21.9 Gastro-esophageal reflux disease without esophagitis; M19.90 Unspecified osteoarthritis, unspecified site; Z79.84 Long term (current) use of oral hypoglycemic drugs; Z79.82 Long term (current) use of aspirin; Z88.0 Allergy status to penicillin; Z20.822 Contact with and (suspected) exposure to COVID-19; R53.1 Weakness; F03.90 Unspecified dementia, unspecified severity, without behavioral disturbance, psychotic disturbance, mood disturbance, and anxiety; H40.9 Unspecified glaucoma; B96.4 Proteus (mirabilis) (morganii) as the cause of diseases classified elsewhere; Z74.09 Other reduced mobility; E86.9 Volume depletion, unspecified; F39 Unspecified mood [affective] disorder; L98.8 Other specified disorders of the skin and subcutaneous tissue; Z74.01 Bed confinement status; Z79.899 Other long term (current) drug therapy; Z96.653 Presence of artificial knee joint, bilateral; L89.156 Pressure-induced deep tissue damage of sacral region; R25.2 Cramp and spasm
CPT/HCPCS: 36415; 70450-TC; 71045-TC; 80048-TC; 80053-TC; 80076-TC; 81001; 82550-TC; 82962-TC; 83605-TC; 83690-TC; 83735-TC; 83970; 84100-TC; 85025-TC; 87040-TC; 87081-TC; 87086-TC; 97112-TC; 97530-TC; A4223; A6248; G0378; J0696; J1650; J1815; J2270; J2405; J3475; J3490; J7030; J7050; J7060; Q9967